=== PATIENT | female | born 1965 | race Caucasian/White ===

== ENCOUNTER 2020-02-14 00:49 | Outpatient (CLI) | payer OTHER, SELFPAY ==
[2020-02-15 14:20] LABS: SARS-CoV-2 RNA PCR Negative
== END 2020-02-14 00:50 | disposition home or self-care (01) ==
LOC: ANHCOVIDDT 00:50
PROVIDERS: PCP Internal Medicine; Visit Provider Internal Medicine Gastroenterology
DX: Z01.818 Encounter for other preprocedural examination (principal); Z11.59 Encounter for screening for other viral diseases
CPT/HCPCS: 87635; C9803; U0003

== ENCOUNTER 2020-02-17 02:09 | Day surgery (SDC) | payer OTHER, SELFPAY ==
[2020-02-13 14:45] VITALS: BMI 19.1
[2020-02-17 09:34] VITALS: BP 105/69; PULSE 77; RESP 16; TEMP 36.9; O2SAT 97; BMI 19.6
[2020-02-17] MEDS: LACTATED RINGERS 1,000 ML 150 ML IV CONT (09:48)
--- NOTE | 2020-02-17 10:00 | WPDANESEPPF ---
Anes - Initial Pre Proc Eval Procedure: Operation Date: 02/17/20 11:00 Proposed Procedures p Esophagogastroduodenoscopy - Shaun Norwood MD Date/Time: 02/17/20 10:00 Surgeon: Shaun Norwood MD Pre Op Diagnosis: dysphagia, GERD Patient Data Age: 54 Gender: F Height: 5 ft 5 in Weight: 53.6 kg Last Vital Signs Temp 98.4 F 02/17/20 09:34 Pulse 77 02/17/20 09:34 Resp 16 02/17/20 09:34 BP 105/69 02/17/20 09:34 Pulse Ox 97 02/17/20 09:34 Allergies Allergy/AdvReac Type Severity Reaction Status Date / Time Penicillins Allergy Unknown Rash Verified 02/17/20 09:30 Home Medications Medication Instructions Recorded Confirmed Type alprazolam 1 mg PO PRN PRN 02/13/20 02/13/20 History aspirin 81 mg PO DAILY 02/13/20 02/13/20 History baclofen 5 mg PO PRN PRN 02/13/20 02/13/20 History estradiol 2 mg PO DAILY 02/13/20 02/13/20 History estrogens-methyltestosterone 1 tablet PO DAILY 02/13/20 02/13/20 History eszopiclone 2 mg PO PRN PRN 02/13/20 02/13/20 History fluticasone propionate 1 spray INTRANASAL PRN PRN 02/13/20 02/13/20 History hydrocodone-acetaminophen 1 tablet PO PRN PRN 02/13/20 02/13/20 History lithium carbonate 300 mg PO DAILY 02/13/20 02/13/20 History Patient hx anesthesia problems: none Family hx anesthesia problems: none PMFSH Past Medical History Medical History (Updated 02/17/20 @ 10:00 by Jonny Noyola MD) Anxiety Depression GERD (gastroesophageal reflux disease) Family History Family History (Updated 02/26/16 @ 23:21 by DOCTOR UNKNOWN) Mother Patient's mother is in good health Father Patient's father is in good health Sibling Patient's sister is in good health Patient's brother is in good health Social History Social History (Updated 02/17/20 @ 10:15 by Jonny Noyola MD) Smoking packs per day: 0.5 Smoking cigarettes per day: 10.0 Years smoked: 20 Smoking pack-years: 10.00 Smoking status: Current every day smoker Alcohol intake: never Substance use: current Substance use type: marijuana Anes - Eval Final PreProcedure Day of Procedure 02/17/20 10:00 Patient weight: normal Heart: regular rate and rhythm Lungs: clear to auscultation Airway: Mallampati scale Neurological: alert and oriented Last oral intake: >/= 8 hours ASA classification: II Emergent: no Anesthetic plan: proceed Anesthesia type and monitoring: general GIVS and standard monitoring Informed Consent: The patient's anesthetic plan and its attendant risks and benefits were discussed with the patient/family/POA. Questions were solicited and answers provided to the satisfaction of the patient/family/POA.
--- NOTE | 2020-02-17 10:12 | P.HP_ITS ---
History of Present Illness History of Present Illness Consent: Risks, benefits, and alternatives have been discussed and questions answered. Patient agrees to proceed with procedure. Chief complaint: dysphagia, GERD Narrative: Malena Young is a 54 year old W female referred for gastroscopy for evaluation of chronic gastroesophageal reflux disease and intermittent dysphagia. Patient is a chronic smoker. There is no family history of esophageal cancer. She denies any nausea vomiting hematemesis. She takes [id number] Pepto-Bismol. No weight loss. [facility] Past Medical History Medical History (Updated 02/17/20 @ 10:00 by Jonny Noyola MD) Anxiety Depression GERD (gastroesophageal reflux disease) Family History Family History (Updated 02/26/16 @ 23:21 by DOCTOR UNKNOWN) Mother Patient's mother is in good health Father Patient's father is in good health Sibling Patient's sister is in good health Patient's brother is in good health Social History Social History (Updated 02/17/20 @ 10:02 by Jonny Noyola MD) Smoking packs per day: 0.5 Smoking cigarettes per day: 10.0 Years smoked: 20 Smoking pack-years: 10.00 Smoking status: Current every day smoker Alcohol intake: never Substance use type: marijuana Meds Home Medications and Allergies Home Medications Medication Instructions Recorded Confirmed Type alprazolam 1 mg PO PRN PRN 02/13/20 02/13/20 History aspirin 81 mg PO DAILY 02/13/20 02/13/20 History baclofen 5 mg PO PRN PRN 02/13/20 02/13/20 History estradiol 2 mg PO DAILY 02/13/20 02/13/20 History estrogens-methyltestosterone 1 tablet PO DAILY 02/13/20 02/13/20 History eszopiclone 2 mg PO PRN PRN 02/13/20 02/13/20 History fluticasone propionate 1 spray INTRANASAL PRN PRN 02/13/20 02/13/20 History hydrocodone-acetaminophen 1 tablet PO PRN PRN 02/13/20 02/13/20 History lithium carbonate 300 mg PO DAILY 02/13/20 02/13/20 History Allergies Allergy/AdvReac Type Severity Reaction Status Date / Time Penicillins Allergy Unknown Rash Verified 02/17/20 09:30 Vital Signs Vital Signs - 24 hr 02/17/20 09:34 Temperature 36.9 C Pulse Rate 77 Respiratory Rate 16 Blood Pressure 105/69 Pulse Oximetry 97 Exam Const: Orientation/consciousness: patient oriented x3 Resp: Auscultation: clear to auscultation bilaterally Cardio: Rate: regular rate Rhythm: regular rhythm Heart sounds: no murmurs GI: GI Palp: Yes Soft to palpation, No Tenderness to palpation present (GI), Yes No hepatosplenomegaly present and No Palpable mass present Auscultation: normal bowel sounds Neuro: General: patient oriented x3 and no focal motor deficits Extrem: General: no pedal edema Assessment and Plan Additional Plan EGD with possible esophageal dilatation for evaluation of chronic indigestion heartburn and dysphagia
[2020-02-17 11:10] VITALS: BP 90/57; PULSE 79; RESP 25; O2SAT 98
[2020-02-17 11:20] VITALS: BP 95/62; PULSE 84; RESP 23; O2SAT 100
[2020-02-17 11:30] VITALS: BP 110/76; PULSE 85; RESP 20; O2SAT 100
== END 2020-02-17 11:49 | disposition home or self-care (01) ==
PROVIDERS: PCP Internal Medicine; Visit Provider Internal Medicine Gastroenterology
PROC: 0DJ08ZZ Inspection of Upper Intestinal Tract, Via Natural or Artificial Opening Endoscopic (ICD-10-PCS; CPT 43235; principal; 2020-02-17 11:00)
DX: K21.0 Gastro-esophageal reflux disease with esophagitis (principal); K29.70 Gastritis, unspecified, without bleeding; F32.9 Major depressive disorder, single episode, unspecified; F41.9 Anxiety disorder, unspecified; F17.210 Nicotine dependence, cigarettes, uncomplicated; Z88.0 Allergy status to penicillin; Z79.891 Long term (current) use of opiate analgesic; Z79.82 Long term (current) use of aspirin; Z79.899 Other long term (current) drug therapy
CPT/HCPCS: 43239; 87081; 88305; J2704; J7120

== ENCOUNTER 2023-05-01 13:34 | Outpatient (CLI) | payer OTHER, SELFPAY ==
--- NOTE | ~2023-05-01 | MR_ITS ---
MRI of the lumbar spine Clinical History: Radiculopathy Technique: Axial T2-weighted images, and sagittal T1-weighted, T2-weighted, and and T2 fat-sat images were acquired. Findings: There is no fracture or subluxation of the lumbar spine. Vertebral bodies maintain normal h eight and alignment. No suspicious bone marrow signal abnormality seen. There is minimal disc desiccation L1-L2, without significant bulge or herniation. No central canal st enosis or neural foraminal narrowing. At L2-L3, there is minimal disc bulge with tiny annular fissure. There is minimal facet joint degener ative change. No central canal stenosis or neural foraminal narrowing. At L3-L4, there is no disc bulge or herniation. There is no central canal stenosis or neural foramina l narrowing. At L4-L5, there is minimal disc bulge with tiny annular fissure. No central canal stenosis or neural foraminal narrowing. At L5-S1, there is minimal disc bulge with tiny annular fissure. No central canal stenosis or neural foraminal narrowing. Paravertebral soft tissues are unremarkable. Impression: Minimal degenerative spondylosis, as above. Reviewed, dictated and finalized at location M. Impression: Minimal degenerative spondylosis, as above.
== END 2023-05-01 13:35 ==
LOC: MICIMG 13:36
PROVIDERS: PCP Nurse Practitioner Family; Visit Provider Nurse Practitioner Family
DX: M54.16 Radiculopathy, lumbar region (principal); M43.06 Spondylolysis, lumbar region
CPT/HCPCS: 72148

== ENCOUNTER 2023-05-22 13:30 | Outpatient (CLI) | payer OTHER, SELFPAY ==
--- NOTE | ~2023-05-22 | CT_ITS ---
CT Scan of the Chest without Contrast: Clinical Indication: Emphysema Technique: Contiguous sections were acquired throughout the chest without intravenous contrast. Dose reduction technique was used on this scan by utilizing automated exposure control and iterative recon struction technique. The dose-length product (DLP) was 116.23 mGy-cm. Findings: There is no evidence of any significant mediastinal, hilar or axillary lymphadenopathy. The mediastin al soft tissues appear normal. There is no evidence of pleural or pericardial effusion. 4 mm left lower lobe pulmonary nodule noted (axial image 39). There is mild emphysema.. Images through the upper abdomen reveal no abnormalities. Impression: Mild emphysema. 4 mm left lower lobe pulmonary nodule. According to Fleischner Society criteria, for a low-risk patie nt, no further follow-up required. For a high-risk patient, consider 12 month follow-up CT. Reviewed, dictated and finalized at [facility]. Impression: Mild emphysema. 4 mm left lower lobe pulmonary nodule. According to Fleischner Society criteria , for a low-risk patient, no further follow-up required. For a high-risk patien t, consider 12 month follow-up CT.
== END 2023-05-22 13:31 | disposition home or self-care (01) ==
PROVIDERS: PCP Nurse Practitioner Family; Visit Provider Physician Assistant
DX: R91.1 Solitary pulmonary nodule (principal); J43.9 Emphysema, unspecified
CPT/HCPCS: 71250

== ENCOUNTER 2023-05-26 13:21 | Outpatient (CLI) | payer OTHER, SELFPAY ==
--- NOTE | 2023-05-30 12:43 | WPDSIXMINUTE ---
Six Minute Walk Procedure Procedure Performed Pulmonary Stress Test (6 min walk) Six Minute Walk Six Minute Walk: This is a 6 minute walk test. The test was performed and interpreted in accordance with the 2014 ERS/ATS task force guidelines. Findings: The patient's resting room air oxygen saturation measured by pulse oximetry was 95% and heart rate was 90 bpm. Patient ambulated for 427 meters and oxygen saturation remained 92 to 94%. Heart rate at the end of the study was 111 bpm. The patient did not qualify for supplemental oxygen at rest or with ambulation. There are no prior studies for comparison.
--- NOTE | 2023-05-30 12:44 | WPDPFTINT ---
PFT Procedure Performed PFT Procedure Performed Spirometry with Pre/Post Bronchodilator Plethysmography (Lung Vol) Diffusing Cap (DLCO) Flow Vol Loop PFT Interpretation This is a pulmonary function test with pre and post-bronchodilator spirometry, plethysmography and diffusing capacity. The test was performed and results interpreted in accordance with the 2019 and 2005 ATS/ERS Task Force guidelines respectively using the Global Lung Function Initiative-2012 reference equations. Patient demonstrated good effort and cooperation. Reproducibility criteria were met. The quality of the pre bronchodilator spirometry maneuver was Grade A and post bronchodilator spirometry maneuver was Grade A. Findings: Spirometry: The contour the inspiratory and expiratory flow tracing are normal. The pre bronchodilator FVC is 2.77 L, 99% predicted. The pre bronchodilator FEV1 is 2.10 L, 95% predicted. The pre bronchodilator FEV1: FVC ratio 76%. The post bronchodilator FVC is 2.67 L, representing a 4% decrease. The post bronchodilator FEV1 is 2.02 L, representing a 4% decrease. The post bronchodilator FEV1: FVC ratio 76%. Plethysmography: The total lung capacity is 4.96 L, 110% predicted. The functional residual capacity is 2.98 L, 108% predicted. The residual volume is 2.00 L, 108% predicted. Diffusing capacity: The diffusing capacity unadjusted for hemoglobin and carboxyhemoglobin is 9.7, 44% predicted. The diffusing capacity adjusted for alveolar volume is 3.01, 68% predicted. Impression: The spirometry is normal without evidence of an obstructive abnormality. There is no significant improvement after inhaling a single dose of albuterol. The lung volumes are normal. The diffusing capacity unadjusted for hemoglobin and carboxyhemoglobin is moderately decreased and remains mildly decreased when adjusted for alveolar volume. There are no prior studies for comparison
== END 2023-05-26 13:22 | disposition home or self-care (01) ==
PROVIDERS: PCP Nurse Practitioner Family; Visit Provider Physician Assistant
DX: J43.9 Emphysema, unspecified (principal)
CPT/HCPCS: 94060; 94618; 94726; 94729

== ENCOUNTER → 2023-08-10 13:16 | Outpatient (CLI) | payer OTHER, SELFPAY ==
--- NOTE | ~2023-08-10 | MM_ITS ---
EXAMINATION: MM scrn gino implant BI w stephania HISTORY: Screening mammogram TECHNIQUE: Craniocaudal and mediolateral oblique 3-D tomosynthesis images with implant displacement a nd synthetic 2-D images were generated. Craniocaudal and mediolateral oblique views of the breasts wi thout implant displacement were obtained using full field digital mammography. CAD analysis was submi tted and interpreted. COMPARISON: 05/15/2013, 09/03/2009 BREAST PARENCHYMAL COMPOSITION: There are scattered areas of fibroglandular density. FINDINGS: There is no evidence of suspicious mass, calcification, or architectural distortion to sugg est malignancy in either breast. There has been no suspicious interval change. IMPRESSION: 1. No mammographic evidence of malignancy. 2. Recommend routine screening mammography in one year. BI-RADS Category 1: Negative Reviewed, dictated and finalized at location A. UET COORDINATOR
== END ==
PROVIDERS: PCP Nurse Practitioner Obstetrics & Gynecology; Visit Provider Nurse Practitioner Obstetrics & Gynecology
DX: Z12.31 Encounter for screening mammogram for malignant neoplasm of breast (principal)
CPT/HCPCS: 77063; 77067

== ENCOUNTER 2023-10-24 07:14 | Outpatient (CLI) | payer OTHER, SELFPAY ==
--- NOTE | ~2023-10-24 | NM_ITS ---
EXAMINATION: NM paul stress w perfusion DATE: 10/24/2023 12:10 INDICATION: Chest pain TECHNIQUE: Rest images were obtained following intravenous administration of 10.3 mCi Tc99m tetrofosm in (Myoview). The patient was infused intravenously with Lexiscan (Regadenoson). Then, 30.2 mCi Tc99m tetrofosmin (Myoview) was administered intravenously, and stress images were obtained. Data was benita nstructed into short axis and horizontal and vertical long axis SPECT images. Gated SPECT images were also obtained. COMPARISON: None. FINDINGS: There is no definite reversible or fixed perfusion abnormality to suggest ischemia or infar ction. There is normal left ventricular chamber size, wall motion and ejection fraction. Left ventr icular ejection fraction measures 50%. IMPRESSION: 1. Normal myocardial perfusion at rest and during stress. 2. Left ventricular ejection fraction measuring 50%. Reviewed, dictated and finalized at location A.
--- NOTE | 2023-10-24 07:36 | EST_ITS ---
Patient Info Name: Malena Young Age: 58 years : 1965 Gender: Female Ht: 64 in Wt: 104 lbs BSA: 1.45 m2 HR: 83 bpm BP: 110 / 74 mmHg Heart Rhythm: Sinus Rhythm Exam Date: 10/24/2023 9:10 AM Exam Location: Echo Lab Patient Status: Outpatient Admit Date: 10/24/2023 Staff Ordering Physician: Asif Moulton DO Attending Provider: Asif Moulton DO Exercise Technologist: Ilene Johnson CT Exercise Physician: Asif Moulton DO Exam Type: CA stress paul w NM Study Info Indications R06.09 - Other forms of dyspnea R07.89 - Other chest pain A regadenoson stress test was performed. Summary 1. 1. Negative lexiscan stress test for ischemic ST changes by ECG criteria. 2. 2. Stable hemodynamics throughout the test. 3. 3. Nuclear scan to follow and will be reported separately. Please correlate with it. 4. 4. Patient informed of the above results. Protocol: Lexiscan Stress ECG Details Stage: REST Duration (min): 0 min : 46 sec HR (bpm): 84 SBP (mmHg): 110 DBP (mmHg): 74 Stage: REST Duration (min): 7 min : 51 sec HR (bpm): 87 SBP (mmHg): 110 DBP (mmHg): 74 Stage: STAGE 1 Duration (min): 1 min : 0 sec HR (bpm): 107 SBP (mmHg): 103 DBP (mmHg): 79 Stage: RECOVERY Duration (min): 1 min : 0 sec HR (bpm): 109 SBP (mmHg): 103 DBP (mmHg): 79 Stage: RECOVERY Duration (min): 2 min : 0 sec HR (bpm): 105 SBP (mmHg): 103 DBP (mmHg): 79 Stage: RECOVERY Duration (min): 2 min : 54 sec HR (bpm): 109 SBP (mmHg): 113 DBP (mmHg): 75 Rest HR: 87 bpm Peak HR: 110 bpm Rest Sys BP: 110 mmHg Peak Sys BP: 113 mmHg Max Pred HR: 161 bpm % Max Pred HR: 68 % Target HR: 137 bpm Max RPP: 12,430 bpm*mmHg Termination Reason: Completed protocol Cardiac Symptoms: Shortness of breath Total Time: 1 min : 0 sec Rest Lovett BP: 74 mmHg Peak Lovett BP: 75 mmHg Total Dose: 0.4 mg Resting ECG Sinus rhythm. Stress ECG No ST changes. Arrhythmias None. Report Signatures
--- NOTE | 2023-10-24 07:37 | ECHO_ITS ---
Patient Info Name: Malena Young Age: 58 years : 1965 Gender: Female Ht: 64 in Wt: 130 lbs BSA: 1.64 m2 HR: 92 bpm BP: 116 / 77 mmHg Heart Rhythm: Sinus Rhythm Technical Quality: Good Exam Date: 10/24/2023 7:43 AM Exam Location: Echo Lab Patient Status: Outpatient Admit Date: 10/24/2023 Staff Ordering Physician: Asif Moulton DO Reel Blade Bender Furnace Tender: Sunni Hermosillo RDCS Attending Provider: Asif Moulton DO Referring Physician: Kenney CARBALLO; Exam Type: CA echo doppler color flow Study Info Indications R07.9 - Chest pain, unspecified R06.09 - Other forms of dyspnea Complete two-dimensional, color flow and Doppler transthoracic echocardiogram is performed. Summary 1. Complete two-dimensional, color flow and Doppler transthoracic echocardiogram is performed. 2. Left ventricular chamber dimension is normal. 3. Left ventricular systolic function is normal, estimated at 65-70%. 4. The left ventricular diastolic function is grade I diastolic dysfunction. 5. E/e' 5 is not elevated. 6. There is trace tricuspid valve regurgitation. 7. No pulmonary hypertension, estimated pulmonary arterial systolic pressure is 18 mmHg. Left Ventricle E/e' 5 is not elevated. Left ventricular chamber dimension is normal. Left ventricular systolic function is normal, estimated at 65-70%. The left ventricular diastolic function is grade I diastolic dysfunction. Right Ventricle Right ventricular systolic function is normal and with normal TAPSE 1.9 cm.. Right ventricular chamber dimension is normal. Left Atria Left atrial chamber dimension is normal. Right Atria Right atrial chamber dimension is normal. Aortic Valve The aortic valve is trileaflet. There is no aortic valve stenosis. There is no aortic valve regurgitation. Pulmonic Valve There is no pulmonic regurgitation. Mitral Valve There is no mitral valve stenosis. There is no mitral valve regurgitation. Tricuspid Valve There is trace tricuspid valve regurgitation. No pulmonary hypertension, estimated pulmonary arterial systolic pressure is 18 mmHg. Pericardium/Pleural There is no pericardial effusion. Inferior Vena Cava Normal inferior vena cava with >50% collapse upon inspiration consistent with normal right atrial pressure, 5 mmHg. Aorta The aortic root size at the sinus of Valsalva is normal. Left Ventricular Outflow Tract Name Value Normal LVOT 2D LVOT Diameter 2.0 cm LVOT Doppler LVOT Peak Gradient 3 mmHg LVOT Mean Gradient 2 mmHg LVOT VTI 18 cm LVOT VTI/AV VTI Ratio 0.8 LVOT Stroke Volume 55 ml LVOT CO 4.4 l/min LVOT CI 2.7 l/min/m2 Pulmonic Valve Name Value Normal RVOT Doppler RVOT Peak Gradient 1 mmHg PV Doppler
== END 2023-10-24 07:15 | disposition home or self-care (01) ==
PROVIDERS: PCP Nurse Practitioner Obstetrics & Gynecology; Visit Provider Internal Medicine Cardiovascular Disease
DX: R07.89 Other chest pain (principal); R06.09 Other forms of dyspnea
CPT/HCPCS: 78452; 93017; 93306; A9502; J2785

== ENCOUNTER 2024-04-25 11:04 | Outpatient (CLI) | payer OTHER, SELFPAY ==
[2024-04-25 11:29] LABS: Basophils Absolute Auto 0.1 K/mm3 (0.0-0.1); Basophils Percent Auto 0.6 % (0.2-1.2); Eosinophils Absolute Auto 0.1 K/mm3 (0-0.3); Hematocrit 38.9 % (37.0-47.0); Hemoglobin 12.3 g/dL (12.0-15.0); Immature Granulocyte Absolute 0.02 K/mm3 (0.00-0.031); Immature Granulocyte Percent A 0.3 % (0-0.5); Lymphocytes Absolute Auto 2.54 K/mm3 (0.9-3.2); Lymphocytes Percent Auto 32.1 % (18.3-44.2); Mean Corpuscular HGB Conc 31.6 g/dl (32-36); Mean Corpuscular Hemoglobin 29.9 pg (26-34); Mean Corpuscular Volume 94.6 fl (80-100); Mean Platelet Volume 8.8 fl (7.4-10.4); Monocytes Absolute Auto 0.4 K/mm3 (0.1-0.6); Monocytes Percent Auto 5.6 % (2.6-8.5); Neutrophils Absolute Auto 4.8 K/mm3 (1.3-6.7); Neutrophils Percent Auto 60.4 % (45.5-73.1); Platelet Count Result 228 k/mm3 (150-375); Red Blood Count 4.11 M/mm3 (4.2-5.4); Red Cell Distribution Width 14.1 % (11.5-14.5); White Blood Count 7.9 K/mm3 (4.5-10.0)
[2024-04-25 11:40] LABS: Alanine Aminotransferase 21 U/L (6-35); Albumin Level 3.9 g/dL (3.5-5.1); Alkaline Phosphatase 149 U/L (38-126); Anion Gap 7 mmol/L (4-12); Aspartate Amino Transferase 26 U/L (14-36); Bilirubin,Total 0.3 mg/dL (0.2-1.3); Blood Urea Nitrogen 14 mg/dL (7-17); Calcium 8.7 mg/dL (8.4-10.2); Carbon Dioxide 26 mmol/L (22-30); Chloride 107 mmol/L (98-107); Cholesterol 208 mg/dL (0-200); Estimated Glomerular Filt Rate > 60; Glucose 100 mg/dL (65-110); HDL Direct 51 mg/dL; Magnesium 2.1 mg/dL (1.6-2.3); Sodium 140 mmol/L (137-145); Triglycerides 157 mg/dL (<150)
[2024-04-25 11:51] LABS: LDL Cholesterol Direct 118 mg/dL
[2024-04-25 12:13] LABS: Hemoglobin A1C 5.3 % (<5.7)
== END 2024-04-25 11:05 | disposition home or self-care (01) ==
LOC: ANHLAB 11:06
PROVIDERS: PCP Nurse Practitioner Obstetrics & Gynecology; Visit Provider Internal Medicine Cardiovascular Disease
DX: R07.9 Chest pain, unspecified (principal)
CPT/HCPCS: 36415; 80053; 80061; 83036; 83735; 84443; 85025

== ENCOUNTER 2024-05-27 13:52 | Outpatient (CLI) | payer OTHER, SELFPAY ==
--- NOTE | ~2024-05-27 | CT_ITS ---
CT Scan of the Chest without Contrast: Clinical Indication: Lung cancer screening, nicotine dependence Technique: Contiguous sections were acquired throughout the chest without intravenous contrast. Dose reduction technique was used on this scan by utilizing automated exposure control and iterative recon struction technique. The dose-length product (DLP) was 59.99 mGy-cm. COMPARISON: 05/22/2023 Findings: There is no evidence of any significant mediastinal, hilar or axillary lymphadenopathy. The mediastin al soft tissues appear normal. There is no evidence of pleural or pericardial effusion. Mild emphysema present. Calcified right upper lobe granuloma present. Stable 4 mm left lower lobe pul monary nodule (axial image 42). Images through the upper abdomen reveal no abnormalities. Impression: Lung RADS 2: Benign appearance. 12 month follow-up screening CT advised. Reviewed, dictated and finalized at [facility]. Impression: Lung RADS 2: Benign appearance. 12 month follow-up screening CT advised.
== END 2024-05-27 13:53 | disposition home or self-care (01) ==
PROVIDERS: Visit Provider Physician Assistant
DX: Z12.2 Encounter for screening for malignant neoplasm of respiratory organs (principal); Z87.891 Personal history of nicotine dependence
CPT/HCPCS: 71271

== ENCOUNTER 2024-05-31 16:13 | Emergency (ER) | payer OTHER, SELFPAY ==
--- NOTE | ~2024-05-31 | XR_ITS ---
XR ankle LT min 3V Ordering provider: Lenka Starr PA-C History: . left ankle pain, fall . Comparison: None. FINDINGS: BONES: No acute fracture or dislocation. JOINT SPACES: The ankle mortise is normal. SOFT TISSUES: Normal. IMPRESSION: No acute osseous abnormality left ankle. Reviewed, dictated and finalized at location A.
--- NOTE | ~2024-05-31 | CT_ITS ---
Procedure: CT knee LT wo con Ordering provider: Lenka Starr PA-C History: . possible tibial plateau fracture . Comparison: None. Technique: Thin slice axial CT of the No IV contrast was given. Sagittal and coronal reformatted imag es were also obtained and reviewed. Radiation reduction technique utilized. The dose-length product was 490.42 mGy-cm. Findings: BONES: Fracture of the medial tibial plateau is noted with no displacement. Extension to the tibial s pine is seen. Fracture in the head of the fibula is also seen. No displacement noted. JOINT SPACES: Normal. SOFT TISSUES: Fluid blood level is seen in the suprapatellar patellar bursa. Minimal fat stranding se en posterior to the knee medially with small blood collections. IMPRESSION: Undisplaced Fracture of the medial tibial plateau. Undisplaced Fracture of the fibular head. Reviewed, dictated and finalized at location A.
--- NOTE | ~2024-05-31 | XR_ITS ---
XR knee LT min 4V Ordering provider: Lenka Starr PA-C History: . left knee pain, fall . Comparison: None. FINDINGS: BONES: Fracture of the head of the fibula is noted. Possible fracture in the medial tibial plateau. If Clinically warranted CT is advised. JOINT SPACES: Normal. SOFT TISSUES: Fat fluid level is noted in the suprapatellar bursa. IMPRESSION: Fracture of the fibular head. Possible fracture in the medial tibial plateau. If clinically warranted CT is advised. Fat fluid level is seen in the suprapatellar bursa. Reviewed, dictated and finalized at location A. IMPRESSION: Fracture of the fibular head. Possible fracture in the medial tibial plateau. If clinically warranted CT is a dvised. Fat fluid level is seen in the suprapatellar bursa.
--- NOTE | ~2024-05-31 | CT_ITS ---
EXAMINATION: CT brain wo con DATE: 05/31/2024 17:06 INDICATION: Head injury post fall down stairs TECHNIQUE: Computed tomography (CT) of the head was performed without intravenous contrast. Sagittal and coronal reconstructions were performed. The mA was adjusted according to patient size. Iterative reconstruction technique was employed. The dose-length product was 605.33 mGy-cm. COMPARISON: head CT dated 06/02/2015 FINDINGS: No fracture. No acute intracranial hemorrhage, acute infarction or abnormal extra axial fluid collect ion. There is mild scattered white matter hypoattenuation consistent with chronic small vessel ischem ic disease. Ventricles are normal and symmetric. No mass/mass effect. Changes of bilateral intraocula r lens replacement. The orbits, paranasal sinuses and mastoid air cells are normal. IMPRESSION: 1. No fracture or acute intracranial process. 2. Likely age-related mild scattered white matter hypoattenuation consistent with chronic small vesse l ischemic disease. Reviewed, dictated and finalized at location A. IMPRESSION: 1. No fracture or acute intracranial process. 2. Likely age-related mild scattered white matter hypoattenuation consistent wi th chronic small vessel ischemic disease.
--- NOTE | ~2024-05-31 | CT_ITS ---
EXAMINATION: 1. CT facial & cervical spine wo DATE: 05/31/2024 17:06 INDICATION: Head injury TECHNIQUE: 1. Computed tomography (CT) of the maxillofacial region and of the cervical spine were performed with out intravenous contrast. Sagittal and coronal reconstructions of both regions were obtained. Automat ed exposure control and iterative reconstruction technique were employed. The dose-length product was 177.09 mGy-cm. COMPARISON: 06/02/2015 FINDINGS: Maxillofacial CT: Interval appearance of a chronic right nasal bone fracture when compared with CT dated 09/20/2010. No acute maxillofacial fractures. Specifically the mandible,, zygomatic arches and valerio of the orbits a nd paranasal sinuses are all intact. Unchanged mild left and bowing of the nasal septum with no acute fracture. Patient is edentulous with alveolar ridge resorptive on both the mandible and maxilla. Dianelys nges of bilateral intraocular lens replacement. Orbits are otherwise normal. Cervical spine CT: 5 degrees cervical dextrocurvature. Sagittal alignment is normal. Vertebral body and disc heights are normal. No acute fracture. There is minimal to mild multilevel cervical uncovertebral osteoarthritis and cervical and upper thoracic facet osteoarthritis. No central canal or neural foraminal stenosis. Cervical soft tissues are unremarkable. Mild emphysema the visualized upper lungs. IMPRESSION: 1. No acute maxillofacial or cervical osseous abnormality. 2. Minimal to mild cervical facet and uncovertebral osteoarthritis with no central canal or neural fo raminal stenosis. 3. Mild emphysema. Reviewed, dictated and finalized at location A. IMPRESSION: 1. No acute maxillofacial or cervical osseous abnormality. 2. Minimal to mild cervical facet and uncovertebral osteoarthritis with no cent ral canal or neural foraminal stenosis. 3. Mild emphysema.
--- NOTE | ~2024-05-31 | XR_ITS ---
EXAMINATION: XR heel RT min 2V DATE: 05/31/2024 16:51 INDICATION: Right heel pain. TECHNIQUE: 2 views of right calcaneus were obtained. COMPARISON: None. FINDINGS: Bone alignment is normal. No fracture. Joint spaces are normal. IMPRESSION: 1. Normal right calcaneus. Reviewed, dictated and finalized at location B. IMPRESSION: 1. Normal right calcaneus.
--- NOTE | ~2024-05-31 | CT_ITS ---
[facility] DATE: 05/31/2024 17:11 INDICATION: Fall down stairs with washing machine subsequently landing on the patient. TECHNIQUE: Computed tomography (CT) of the chest, abdomen, pelvis as well as of the thoracic and lumb ar spine was performed with 100 mL Omnipaque-350 intravenous contrast. Automated exposure control and iterative reconstruction technique were employed. The dose-length product was 550.81 mGy-cm. COMPARISON: Chest CT dated 05/27/2024 FINDINGS: CHEST CT: Mild emphysema. Right basilar atelectasis and additional mild dependent atelectasis in the bilateral lower lobes. A couple calcified nodules in the right lung along with calcified right hilar and medias tinal lymph nodes consistent with old granulomatous disease. No pneumonia, pulmonary edema, pleural e ffusion or pneumothorax. Heart size is normal. No pericardial effusion. Thoracic aorta is normal in c aliber with no dissection or acute traumatic aortic injury. No pathologically enlarged thoracic lymph adenopathy. Bilateral breast implants. No rib fractures identified. ABDOMEN/PELVIS CT: Liver, gallbladder, pancreas, bilateral adrenal glands and kidneys are normal. A few splenic calcific ations consistent with old granulomatous disease. Bowels including the appendix are normal. Bladder, uterus and bilateral adnexa are unremarkable. No free intraperitoneal gas or fluid. No pathologically enlarged abdominal or pelvic lymphadenopathy. No pelvic fracture. THORACIC SPINE CT: Alignment is normal. Unchanged mild chronic anterior wedging at T5 and T7. Remaining vertebral body h eights are normal. There is multilevel mild disc height loss throughout the thoracic spine. Mild mult ilevel thoracic facet osteoarthritis. No central canal or neural foraminal stenosis. LUMBAR SPINE CT: Alignment is normal. Vertebral body and disc heights are normal. No fractures identified. No central canal or neural foraminal stenosis. IMPRESSION: 1. No acute osseous abnormality or acute vascular or visceral organ injury in the chest, abdomen or p matthew. Reviewed, dictated and finalized at location A. IMPRESSION: 1. No acute osseous abnormality or acute vascular or visceral organ injury in t he chest, abdomen or pelvis.
[2024-05-31 16:15] VITALS: BP 113/65; PULSE 111; RESP 18; TEMP 36.6; O2SAT 98
--- NOTE | 2024-05-31 16:16 | ED.FALL ---
HPI - Fall General Chief Complaint: Trauma Stated Complaint: fall Time Seen by Provider: 05/31/24 16:16 Focused HPI: This is a 59 year old female that presents to the ER after a fall today. Reports she fell down several steps (she believes 8) trying to carry a washer. The washer landed on top of her. Reports pain in the left leg from the knee down. She does think she hit her head. She is not on blood thinners. GENERAL: Well-appearing, well-nourished, and in no acute distress. HEAD: Normocephalic. Abrasion to the left sikh CHEST: Clear to auscultation. ?No respiratory distress. HEART: Regular rate and rhythm.? NEURO: ?Alert and oriented x3. Patient screened in triage and initial orders placed.? ?Additional care and disposition to be based upon?diagnostic testing and treatment. Related Data Home Medications Medication Instructions Recorded Confirmed alprazolam 1 mg tablet 1 mg PO PRN PRN Anxiety 02/13/20 04/26/24 aspirin 81 mg tablet,delayed 81 mg PO DAILY 02/13/20 04/26/24 release eszopiclone 2 mg tablet 2 mg PO PRN PRN sleeplessness 02/13/20 04/26/24 hydrocodone 5 mg-acetaminophen 325 1 tablet PO PRN PRN Pain 02/13/20 04/26/24 mg tablet Allergies Allergy/AdvReac Type Severity Reaction Status Date / Time Penicillins Allergy Unknown Rash Verified 04/26/24 14:35 Review of Systems Review of Systems: CONSTITUTIONAL: Denies fever EYES: Denies visual changes CARDIOVASCULAR: Denies chest pain GASTROINTESTINAL: Denies abdominal pain, nausea, vomiting MUSCULOSKELETAL: Reports joint pain and myalgia. Denies back pain NEUROLOGIC: Denies numbness, or weakness. All systems reviewed & are unremarkable except as noted in HPI and below PMFSH Past Medical History Medical History Anxiety Depression Emphysema lung GERD (gastroesophageal reflux disease) Personal history of nicotine dependence Pulmonary nodule Family History Family History Mother Patient's mother is in good health Father Patient's father is in good health Sibling Patient's sister is in good health Patient's brother is in good health Social History Social History Smoking packs per day: 0.5 Smoking cigarettes per day: 10.0 Years smoked: 20 Smoking pack-years: 10.00 Smoking status: Current every day smoker Alcohol intake: never Substance use: current Substance use type: marijuana Exam Narrative: GENERAL: Well-appearing, well-nourished, and in no acute distress. HEAD: Normocephalic. Abrasion over the left sikh EYES: PERRLA and EOMI. ENT: Nares clear, no rhinorrhea or epistaxis. Mucous membranes moist. Oropharynx without tonsillar hypertrophy exudate or other lesions. Bilateral TMs pearly ruiz non-bulging NECK: Supple. No adenopathy or masses. CHEST: Clear to auscultation. No respiratory distress. No wheezes rales or rhonchi HEART: Regular rate and rhythm. No murmur heard. Normal peripheral pulses. EXTREMITIES: Normal range of motion, except decreased active ROM in the left knee with edema noted. Normal DP pulses. Compartments are soft SKIN: Warm, dry, no rash. NEURO: No focal deficits. Alert and oriented x3. PSYCH: Normal mood and affect Course Course Emergency Course: Patient agrees with plan of care Consultations Consultation #1: Spoke with Dr. floewr about patient and workup. Recommends soft wrap and maxx wrap and then knee immobilizer Date: 05/31/24 Vital Signs Vital signs: Vital Signs Temperature 97.8 F 05/31/24 16:15 Pulse Rate 111 H 05/31/24 16:15 Respiratory Rate 18 05/31/24 16:15 Blood Pressure 113/65 05/31/24 16:15 Pulse Oximetry 98 05/31/24 16:15 Oxygen Delivery Room Air 05/31/24 16:15 Temperature 98.1 F 05/31/24 18:01 Pulse Rate 93 05/31/24 18:01 Respiratory Rate 18 05/31/24 18:01 Blood Pressure 117/79 05/31/24 18:01 Pulse Oximetry 99 05/31/24 18:01 Oxygen Delivery Room Air 05/31/24 17:05 Procedures Orthopedic Splinting/Casting Injury #1: Splinting/Casting Date: 05/31/24 Splinting/Casting Time: 19:29 Side: left Lower Extremity Injury Location: knee Lower Extremity Immobilizer: knee immobilizer Splint: prefabricated Pre-Formed: knee immobilizer Pre-Procedure Neuro Vascular Exam: normal Post-Procedure Neuro Vascular Exam: normal Other Orthopedic Equipment: other (patient reports she has a wheelchair she can use) MDM - Fall MDM Narrative Medical decision making narrative: patient presents to the emergency department after falling down steps. Reporting she was trying to carry a washer down the steps but also fell and partially landed on top of her. Tachycardic upon arrival, this normalized with management of her pain. She is neurovascularly intact. CBC metabolic panel without concerning findings. CT brain and cervical spine without acute findings. CT chest/abdomen / pelvis/ thoracic/ lumbar spine without acute posttraumatic findings. Left knee x-ray shows a possible tibial plateau fracture. Fracture of the fibular head. CT knee once again shows nondisplaced fracture of the medial tibial plateau as well as nondisplaced fracture of the fibular head. Spoke with Dr. flower about patient and workup. Recommends soft wrap and maxx wrap and then knee immobilizer. patient given warnings to return to the ER Differential Diagnosis Differential diagnosis: Likely compression fracture, concussion without loss of consciousness and other ( subdural hematoma, tibial plateau fracture, intra-abdominal trauma, intrathoracic trauma) Lab Data Attestation: I reviewed the patient's lab results. 05/31/24 17:56 05/31/24 17:56 Labs: Lab Results 05/31/24 Range/Units 17:56 WBC 8.9 (4.5-10.0) K/mm3 RBC 4.72 (4.2-5.4) M/mm3 Hgb 14.2 (12.0-15.0) g/dL Hct 43.8 (37.0-47.0) % MCV 92.8 (80-100) fl MCH 30.1 (26-34) pg MCHC 32.4 (32-36) g/dl RDW 14.1 (11.5-14.5) % Plt Count 256 (150-375) k/mm3 MPV 8.9 (7.4-10.4) fl Immature Gran % (Auto) 0.3 (0-0.5) % Neut % (Auto) 61.1 (45.5-73.1) % Lymph % (Auto) 29.3 (18.3-44.2) % [place] % (Auto) 7.3 (2.6-8.5) % Eos % (Auto) 1.4 (0-4.4) % Baso % (Auto) 0.6 (0.2-1.2) % Lymph # (Auto) 2.59 (0.9-3.2) K/mm3 [place] # (Auto) 0.7 H (0.1-0.6) K/mm3 Eos # (Auto) 0.1 (0-0.3) K/mm3 Baso # (Auto) 0.1 (0.0-0.1) K/mm3 Abs Immat Gran (auto) 0.03 (0.00-0.031) K/mm3 Absolute Neuts (auto) 5.4 (1.3-6.7) K/mm3 Absolute Nucleated RBC 0.000 (0.0-0.012) K/mm3 Nucleated RBC % 0.0 (0.0-0.2) % Sodium 140 (137-145) mmol/L Potassium 4.4 (3.4-5.0) mmol/L Chloride 102 (98-107) mmol/L Carbon Dioxide 28 (22-30) mmol/L Anion Gap 10 (4-12) mmol/L BUN 11 (7-17) mg/dL Creatinine 0.70 (0.7-1.0) mg/dL Estim Creat Clear Calc 64 ml/min Estimated GFR > 60 (59 - ) Glucose 79 (65-110) mg/dL Calcium 9.3 (8.4-10.2) mg/dL Total Bilirubin 0.4 (0.2-1.3) mg/dL AST 35 (14-36) U/L ALT 42 H (6-35) U/L Alkaline Phosphatase 219 H (38-126) U/L Total Protein 9.0 H (6.3-8.2) g/dL Albumin 4.8 (3.5-5.1) g/dL Imaging Data Radiologist's impression: ITS Impressions Ankle X-Ray 05/31/24 16:52 IMPRESSION: No acute osseous abnormality left ankle. Knee X-Ray 05/31/24 16:53 IMPRESSION: Fracture of the fibular head. Possible fracture in the medial tibial plateau. If clinically warranted CT is advised. Fat fluid level is seen in the suprapatellar bursa. Heel X-Ray 05/31/24 16:54 IMPRESSION: 1. Normal right calcaneus. Head CT 05/31/24 17:14 IMPRESSION: 1. No fracture or acute intracranial process. 2. Likely age-related mild scattered white matter hypoattenuation consistent with chronic small vessel ischemic disease. Head/Cervical Spine/Facial Bones CT 05/31/24 17:16 IMPRESSION: 1. No acute maxillofacial or cervical osseous abnormality. 2. Minimal to mild cervical facet and uncovertebral osteoarthritis with no central canal or neural foraminal stenosis. 3. Mild emphysema. Chest/Abdomen/Pelvis/Spine CT 05/31/24 17:25 IMPRESSION: 1. No acute osseous abnormality or acute vascular or visceral organ injury in the chest, abdomen or pelvis. Knee CT 05/31/24 18:44 IMPRESSION: Undisplaced Fracture of the medial tibial plateau. Undisplaced Fracture of the fibular head. Critical Care Time Critical Care Time Critical Care Time: No Discharge Plan Discharge Clinical Impression: Closed fracture of tibial plateau Qualifiers: Encounter type: initial encounter Laterality: left Qualified Code(s): S82.142A - Displaced bicondylar fracture of left tibia, initial encounter for closed fracture Fracture of fibula, proximal Qualifiers: Encounter type: initial encounter Fracture type: closed Fracture morphology: other fracture Laterality: left Qualified Code(s): S82.832A - Other fracture of upper and lower end of left fibula, initial encounter for closed fracture Patient Disposition: Home, Self-Care Condition: Stable Instructions: Leg Fracture (ED) Additional Instructions: Return to the ER if you experience fever, redness and swelling of your extremity, numbness or any other symptoms that are concerning to you Wear knee immobilizer. No weight on the affected leg. Ice and elevate extremity. [id number] pain medication as needed. Prescribed pain medication (Oxycodone-acetaminophen) as needed, do not take your previously prescribed narcotic (Hydrocodone-acetaminophen) if you take this Follow up with orthopedics for further care. Prescriptions: New oxycodone-acetaminophen 5-325 mg tablet 1 tablet PO Q6H PRN (Reason: pain) Qty: 14 0RF No Action alprazolam 1 mg tablet 1 mg PO PRN PRN (Reason: Anxiety) hydrocodone-acetaminophen 5-325 mg tablet 1 tablet PO PRN PRN (Reason: Pain) aspirin 81 mg Tablet,Delayed Release (Dr/Ec) 81 mg PO DAILY eszopiclone 2 mg tablet 2 mg PO PRN PRN (Reason: sleeplessness) albuterol sulfate 90 mcg/actuation HFA aerosol inhaler 1 - 2 puff inhalation Q4-6H PRN (Reason: shortness of breath or wheezing) Qty: 8.5 2RF Breztri Aerosphere 160-9-4.8 mcg/actuation HFA aerosol inhaler 2 inh inhalation QAM AND QPM Qty: 10.7 5RF Rx Instructions: rinse and spit Follow-up/Referrals: PHYSICIAN,RN MEDICAL INPATIENT SERVICES [Non-Staff] - Bill Flower MD [Physician] -
[2024-05-31 17:05] VITALS: BP 117/79; PULSE 92; RESP 18; TEMP 36.7; O2SAT 99
[2024-05-31 18:01] VITALS: BP 117/79; PULSE 93; RESP 18; TEMP 36.7; O2SAT 99
[2024-05-31 18:05] LABS: Basophils Absolute Auto 0.1 K/mm3 (0.0-0.1); Basophils Percent Auto 0.6 % (0.2-1.2); Eosinophils Absolute Auto 0.1 K/mm3 (0-0.3); Eosinophils Percent Auto 1.4 % (0-4.4); Hematocrit 43.8 % (37.0-47.0); Hemoglobin 14.2 g/dL (12.0-15.0); Immature Granulocyte Absolute 0.03 K/mm3 (0.00-0.031); Immature Granulocyte Percent A 0.3 % (0-0.5); Lymphocytes Absolute Auto 2.59 K/mm3 (0.9-3.2); Lymphocytes Percent Auto 29.3 % (18.3-44.2); Mean Corpuscular HGB Conc 32.4 g/dl (32-36); Mean Corpuscular Hemoglobin 30.1 pg (26-34); Mean Corpuscular Volume 92.8 fl (80-100); Mean Platelet Volume 8.9 fl (7.4-10.4); Monocytes Absolute Auto 0.7 K/mm3 (0.1-0.6); Monocytes Percent Auto 7.3 % (2.6-8.5); Neutrophils Absolute Auto 5.4 K/mm3 (1.3-6.7); Neutrophils Percent Auto 61.1 % (45.5-73.1); Platelet Count Result 256 k/mm3 (150-375); Red Blood Count 4.72 M/mm3 (4.2-5.4); Red Cell Distribution Width 14.1 % (11.5-14.5); White Blood Count 8.9 K/mm3 (4.5-10.0)
[2024-05-31 18:16] LABS: Alanine Aminotransferase 42 U/L (6-35); Albumin Level 4.8 g/dL (3.5-5.1); Alkaline Phosphatase 219 U/L (38-126); Anion Gap 10 mmol/L (4-12); Aspartate Amino Transferase 35 U/L (14-36); Bilirubin,Total 0.4 mg/dL (0.2-1.3); Blood Urea Nitrogen 11 mg/dL (7-17); Calcium 9.3 mg/dL (8.4-10.2); Carbon Dioxide 28 mmol/L (22-30); Chloride 102 mmol/L (98-107); Estimated CRCL calculation 64 ml/min; Estimated Glomerular Filt Rate > 60; Glucose 79 mg/dL (65-110); Potassium 4.4 mmol/L (3.4-5.0); Sodium 140 mmol/L (137-145)
[2024-05-31] MEDS: MORPHINE SULFATE (*CRX) 4 MG/ML INJ IV PUSH (18:16)
[2024-05-31] MEDS: ONDANSETRON INJ 4 MG/2 ML VIAL IV PUSH (18:19)
[2024-05-31] MEDS: oxyCODONE HCL (*CRX) 5 MG TAB IR PO (19:26)
[2024-05-31 19:37] VITALS: BP 132/76; PULSE 88; RESP 20; TEMP 36.7; O2SAT 98
[2024-05-31] MEDS: TETANUS,DIPHTHERIA,AC PERTUSSIS ADULT (0.5 ML) BOOSTRIX IM (20:25)
[2024-05-31 20:30] VITALS: BP 120/74
[2024-06-05 11:58] LABS: Estimated CRCL calculation 50 ml/min; Estimated Glomerular Filt Rate > 60
== END 2024-05-31 20:55 | disposition home or self-care (01) ==
PROVIDERS: Emergency Provider Physician Assistant
DX: S82.142A Displaced bicondylar fracture of left tibia, initial encounter for closed fracture (principal); S82.832A Other fracture of upper and lower end of left fibula, initial encounter for closed fracture; W10.9XXA Fall (on) (from) unspecified stairs and steps, initial encounter; Z79.82 Long term (current) use of aspirin; F41.8 Other specified anxiety disorders; K21.9 Gastro-esophageal reflux disease without esophagitis; F17.210 Nicotine dependence, cigarettes, uncomplicated; Z23 Encounter for immunization
CPT/HCPCS: 36415; 70450; 70486; 71260; 72125; 72129; 72132; 73564; 73610; 73650; 73700; 74177; 80053; 82565; 85025; 90471; 90715; 96374; 96375; 99284; A9270; J2270; J2405; Q9967

== ENCOUNTER 2024-07-02 12:04 | Outpatient (CLI) | payer OTHER, SELFPAY ==
--- NOTE | ~2024-07-02 | CT_ITS ---
EXAMINATION: CT ankle RT wo con, CT foot RT wo con DATE: 07/02/2024 12:36 INDICATION: Right heel pain and contusion to the right foot post fall down stairs 4 weeks prior TECHNIQUE: High resolution computed tomography (CT) of the right ankle and right foot were performed without int ravenous contrast. Additional sagittal and coronal reconstructions were performed. Automated exposure control and iterative reconstruction technique were employed. The dose-length product was 178.43 (ri ght ankle), 139.12 (right foot) mGy-cm. COMPARISON: Right heel radiographs dated 05/31/2024 FINDINGS: Nondisplaced linear fracture underlying the posterior tuberosity of the right calcaneus with small am ount of lucency along the more anterior/plantar aspect of the fracture line and with new linear scler osis along the more proximal/posterior aspect of the fracture plane consistent with some interval hea ling. Alignment throughout the right foot and ankle remains normal. No other fractures identified. Mi ld osteoarthritis at the first metatarsophalangeal and a few tarsometatarsal and interphalangeal join ts. Soft tissues are unremarkable with no ankle joint effusion. IMPRESSION: 1. Healing nondisplaced fracture underlying the posterior tuberosity of the calcaneus. Reviewed, dictated and finalized at location A. T FARMER IMPRESSION: 1. Healing nondisplaced fracture underlying the posterior tuberosity of the suyapa caneus.
== END 2024-07-02 12:05 | disposition home or self-care (01) ==
PROVIDERS: PCP Physician Assistant Surgical; Visit Provider Physician Assistant Surgical
DX: S92.044D Nondisplaced other fracture of tuberosity of right calcaneus, subsequent encounter for fracture with routine healing (principal); S90.31XD Contusion of right foot, subsequent encounter; W10.9XXD Fall (on) (from) unspecified stairs and steps, subsequent encounter
CPT/HCPCS: 73700

== ENCOUNTER 2025-06-18 11:03 | Outpatient (CLI) | payer OTHER, SELFPAY ==
--- NOTE | ~2025-06-18 | CT_ITS ---
EXAMINATION: CT lung screening DATE: 06/18/2025 11:28 INDICATION: Z87.891 - Personal history of nicotine dependence TECHNIQUE: Computed tomography (CT) of the chest was performed without intravenous contrast. Additional 3D reconstructions utilizing coronal maximum intensity projection (MIP) were performed. Automated exposure control and iterative reconstruction technique were employed. The dose-length product was 59 .71 mGy-cm. COMPARISON: 05/27/2024 FINDINGS: Mild emphysema. A couple calcified right upper lobe nodules along with calcified right hilar and mediastinal lymph nodes and a few splenic calcifications, all consistent with old granulomatous disease. No interval change in a 4 mm left lower lobe pulmonary nodule. There is a new 4-5 mm noncalcified nodule at the azygoesophageal recess of the right lower lobe on image 82. Mild discoid atelectasis in bilateral lower lobes. No pneumonia, pulmonary edema or pleural effusion. Heart size is normal. No pericardial effusion. Thoracic aorta is normal in caliber. No pathologically enlarged thoracic lymphadenopathy. Bilateral breast implants. Mild thoracic spondylosis. Chronic mild anterior wedging at T5. IMPRESSION: 1. Lung-RADS category 3: Probably benign. Further evaluation is recommended with noncontrast low-dose chest CT in 6 months. Reviewed, dictated and finalized at location A. GRAPHY TECHNOLOGIST IMPRESSION: 1. Lung-RADS category 3: Probably benign. Further evaluation is recommended wit h noncontrast low-dose chest CT in 6 months.
--- OUTSIDE RECORDS SUMMARY | 2025-06-18 16:14 | XMS_ITS | Data Portability ---
Author Organization [facility] [place] Address [address] [place] [address] [place] [address] Assessment Encounter Date Assessment Date Assessment LastModified by Organization Details LastModified Time 03/21/2022 03/21/2022 Annual gynecological exam performed. Patient will come back in a year unless there are new symptoms. Not available 03/21/2022 12:27:38 06/19/2023 06/19/2023 Annual gynecological exam performed. Patient will come back in a year unless there are new symptoms. Not available 06/19/2023 14:30:48 09/09/2024 09/09/2024 Annual gynecological exam performed. Patient will come back in a year unless there are new symptoms. [email or web address] Not available 09/06/2024 10:24:25 Plan of Treatment Reminders Order Date Submit Date Provider Last Modified By Organization Details Last Modified Time Details Appointments None recorded. Lab None recorded. Referral None recorded. Procedures None recorded. Surgeries None recorded. Imaging MAMMO, screening, digital, bilateral 2024 025 [facility], [address], [place], [address], 5 05:01:35 US, pelvis 2022 023 [email or web address] [place], [facility] [address], [place], [address], 3 15:26:14 US, transvagina l 2022 023 [email or web address] [address], [address], [place], [address], 3 15:26:14 US, pelvis, complete 2022 023 [address], [place], [address], 3 15:23:20 Medication Orders estradiol 0.01% (0.1 mg/gram) vaginal cream 2024 025 [id number], [address], [place], [id number], 5 15:54:24 Macrobid 100 mg capsule 2024 025 [facility] #[id number], [address], [place], [id number], 5 10:25:30 terconazole 0.8 % vaginal cream 2024 025 [facility][id number], [address], [place], [id number], 5 10:25:28 estradiol-n orethindron e acet 0.5 mg-0.1 mg tablet 2022 023 [facility] #[id number], [address], [place], [id number], 5 15:22:50 Patient TargetsNo targets recorded. Patient InstructionsNo instructions recorded. Reason for Referral None Reported. Results Created Date Observation Date Name Description Value Unit Range Abnormal Flag Note LastModifiedBy Organization Detail LastModifiedTime 03/21/20 22 03/21/2022 IMAGE GUIDE D PAP AND HPV REGAR DLESS image guided Pap, HPV regardless of Pap result SEE RESULT S BELOW CASE REPOR T: Cytol ogy Gynec ologi evans Repor t Case: [id number] Autho jefframa magda Provi serene: Mira london , Elijah Paz cted: 03/21 1551 CONTRACTS ADMINISTRATOR Order ing Locat ion: [place] Patho logkrystian Recei lexi: 03/22 0225 First Scree n: Eddie ma, Zara Rescr een: Raf billings, Keira biggs, CT Speci men: Dawit miner Pap - Image d, Cervi x STATE MENT OF ADEQU ACY: Satis facto ry for evalu ation Trans forma tion zone compo nent prese nt FINAL DIAGN OSIS: Negat emery for Intra epith elial Luis Miguel n or Jatinder ford (NIL) . Elect julianojojo dhillon brian d by Raf billings, Keira biggs, CT on 2021 at 9:28 PM ----- ----- ----- ----- ----- ----- ----- ----- ----- ----- ----- ----- ----- ----- ----- ----- ----- ---- HPV RESUL TS: HPV mRNA E6/E7 : No HPV mRNA Detec michele NOTE: This high risk HPV mRNA assay detec ts fourt een high- risk HPV types (16, 18, 31, 33, 35, 39, 45, 51, 52, 56, 58, 59, 66, 68) witho ut diffe renti ation . COMME NT: Note: This speci men was revie wed by a Cytot echno logis t and/o r Patho logis t (as indic ated in this repor t) after evalu ation using the Thinp rep Imagi ng Syste m. CLINI EVANS INFOR MATIO N: Menst rual Statu s: LMP (if appli cable ): Clini evans Histo ry/Pr eviou s Pap: Type of Neopl chris (if appli cable ): Signi fican t Clini evans Findi ngs: Other Histo ry: Hormo car (if appli cable ): PAP EDUCA LATOSHA L NOTE: The Pap Test is a scree isidra test with an inher ent false negat emery rate. Liqui d-bas ed sampl ing may decre ase, but will not elimi horacio, false negat emery resul ts. A negat emery resul t does not precl ude the prese nce and/o r devel opmen t of disea se, since the prese nce of abnor mal cells in the sampl e depen ds on the locat ion of the lesio n and sampl ing techn ique. Hari nued regul ar scree isidra is the best metho d of cance r preve ntion . If repor michele cytol ogic findi ng do not corre late with physi evans and/o r histo rical findi ngs, furth er inves tigat ion is recom ana d, as clini summer warra nted. Not Available [facility] [address] [place], [address], 03/25/2022 22:30:38 06/19/20 23 06/19/2023 URINA LYSIS , WITH MICRO SCOPI C, REFLE X CULTU RE color, urine Light Yellow Not Available [facility] (Lab) [address] [place], [address], 06/20/2023 05:25:32 06/19/20 23 06/19/2023 URINA LYSIS , WITH MICRO SCOPI C, REFLE X CULTU RE clarity, urine Clear Not Available [facility] (Lab) [address] [place], [address], 06/20/2023 05:25:32 06/19/20 23 06/19/2023 URINA LYSIS , WITH MICRO SCOPI C, REFLE X CULTU RE specific gravity, urine 1.008 . 1.005- 1.035 Not Available [facility] (Lab) [address] [place], [address], 06/20/2023 05:25:32 06/19/20 23 06/19/2023 URINA LYSIS , WITH MICRO SCOPI C, REFLE X CULTU RE pH, urine 6.0 . 5.0-7. 0 Not Available [facility] (Lab) [address] [facility], [place], [address], 06/20/2023 05:25:32 06/19/20 23 06/19/2023 URINA LYSIS , WITH MICRO SCOPI C, REFLE X CULTU RE protein, UA Negati ve mg/dL negati ve, - Not Available [facility] (Lab) [address] [facility], [place], [address], 06/20/2023 05:25:32 06/19/20 23 06/19/2023 URINA LYSIS , WITH MICRO SCOPI C, REFLE X CULTU RE glucose, urine Normal mg/dL negati ve Not Available [facility] (Lab) [address] [facility], [place], [address], 06/20/2023 05:25:32 06/19/20 23 06/19/2023 URINA LYSIS , WITH MICRO SCOPI C, REFLE X CULTU RE ketones, urine Negati ve mg/dL negati ve Not Available [facility] (Lab) [address] [facility], [place], [address], 06/20/2023 05:25:32 06/19/20 23 06/19/2023 URINA LYSIS , WITH MICRO SCOPI C, REFLE X CULTU RE bilirubin, urine Negati ve negati ve Not Available [facility] (Lab) [address] [facility], [place], [address], 06/20/2023 05:25:32 06/19/20 23 06/19/2023 URINA LYSIS , WITH MICRO SCOPI C, REFLE X CULTU RE blood, urine Negati ve negati ve Not Available [facility] (Lab) [address] [facility], [place], [address], 06/20/2023 05:25:32 06/19/20 23 06/19/2023 URINA LYSIS , WITH MICRO SCOPI C, REFLE X CULTU RE nitrite, urine Negati ve negati ve Not Available [facility] (Lab) [address] [facility], [place], [address], 06/20/2023 05:25:32 06/19/20 23 06/19/2023 URINA LYSIS , WITH MICRO SCOPI C, REFLE X CULTU RE leukocyte esterase, urine Negati ve nabeel/u L negati ve Not Available [facility] (Lab) [address] [facility], [place], [address], 06/20/2023 05:25:32 06/19/20 23 06/19/2023 URINA LYSIS , WITH MICRO SCOPI C, REFLE X CULTU RE urobilinogen , urine Normal mg/dL normal , <2.0 Not Available [facility] (Lab) [address] [facility], [place], [address], 06/20/2023 05:25:32 06/19/20 23 06/19/2023 URINA LYSIS , WITH MICRO SCOPI C, REFLE X CULTU RE RBC, urine 0-2 /hpf none, 0-2 Not Available [facility] (Lab) [address] [facility], [place], [address], 06/20/2023 05:25:32 06/19/20 23 06/19/2023 URINA LYSIS , WITH MICRO SCOPI C, REFLE X CULTU RE WBC, urine 0-5 /hpf none, 0-5 Not Available [facility] (Lab) [address] [facility], [place], [address], 06/20/2023 05:25:32 06/19/20 23 06/19/2023 URINA LYSIS , WITH MICRO SCOPI C, REFLE X CULTU RE squamous epithelial cells, urine Few /hpf none abnormal Not Available [facility] (Lab) [address] [facility], [place], [address], 06/20/2023 05:25:32 06/19/20 23 06/19/2023 URINA LYSIS , WITH MICRO SCOPI C, REFLE X CULTU RE bacteria, urine None /hpf none Not Available [facility] (Lab) [address] [facility], [place], [address], 06/20/2023 05:25:32 06/19/20 23 06/19/2023 URINA LYSIS , WITH MICRO SCOPI C, REFLE X CULTU RE hyaline cast, urine None /lpf none, 0-2 Urine Cultu re not perfo rmed per refle x amber col. Not Available [facility] (Lab) [address] [facility], [place], [address], 06/20/2023 05:25:32 06/19/20 23 06/19/2023 IMAGE GUIDE D PAP AND HPV REGAR DLESS image guided Pap, HPV regardless of Pap result SEE RESULT S BELOW CASE REPOR T: Cytol ogy Gynec ologi evans Repor t Case: [id number] Autho jeferson man Provi serene: Adelso Ly Colle cted: 06/19 1521 CONTRACTS ADMINISTRATOR Order ing Locat ion: [place] Patho logy Recei lexi: 06/20 1024 First Scree n: Hannah Mckeon CT Speci men: Dawit miner Pap - Image d, Cervi x STATE MENT OF ADEQU ACY: Satis facto ry for evalu ation Trans forma tion zone compo nent prese nt FINAL DIAGN OSIS: Negat emery for Intra epith elial Luis Miguel [place] or Jatinder ford (NIL) . Saba torres d by Hannah Mckeon CT on 06/24 at 7:06 PM ----- ----- ----- ----- ----- ----- ----- ----- ----- ----- ----- ----- ----- ----- ----- ----- ----- ---- HPV RESUL TS: HPV mRNA E6/E7 : No HPV mRNA Detec michele NOTE: This high risk HPV mRNA assay detec ts fourt een high- risk HPV types (16, 18, 31, 33, 35, 39, 45, 51, 52, 56, 58, 59, 66, 68) witho ut diffe renti ation . COMME NT: This speci men was revie wed by a Cytot echno logis t and/o r Patho logis t (as indic ated in this repor t) after evalu ation using the Thinp rep Imagi ng Syste m. CLINI EVANS INFOR MATIO N: Menst rual Statu s: LMP (if appli cable ): Clini evans Histo ry/Pr eviou s Pap: Type of Neopl chris (if appli cable ): Signi fican t Clini evans Findi ngs: Other Histo ry: Hormo car (if appli cable ): PAP EDUCA LATOSHA L NOTE: The Pap Test is a scree isidra test with an inher ent false negat emery rate. Liqui d-bas ed sampl ing may decre ase, but will not elimi horacio, false negat emery resul ts. A negat emery resul t does not precl ude the prese nce and/o r devel opmen t of disea se, since the prese nce of abnor mal cells in the sampl e depen ds on the locat ion of the lesio n and sampl ing techn ique. Hari nued regul ar scree isidra is the best metho d of cance r preve ntion . If repor michele cytol ogic findi ng do not corre late with physi evans and/o r histo rical findi ngs, furth er inves tigat ion is recom ana d, as clini summer warra nted. Not Available [facility] (Lab) [address], [place], [address], 06/24/2023 20:09:36 06/19/20 23 06/19/2023 TRICH OMONA S VAGIN ABRAHAM (RRNA ) trichomonas vaginalis ribosomal RNA (rrna) Negati ve negati ve Not Available [facility] (Lab) [address], [place], [address], 06/24/2023 20:09:36 06/19/20 23 06/19/2023 CT/GC (CELIO) , THINP REP VIAL chlamydia trachomatis, PCR Negati ve negati ve Not Available [facility] (Lab) [address] [facility], [place], [address], 06/24/2023 20:09:36 06/19/20 23 06/19/2023 CT/GC (CELIO) , THINP REP VIAL neisseria gonorrhoeae, PCR Negati ve negati ve Not Available [facility] (Lab) [address] [facility], [place], [address], 06/24/2023 20:09:36 06/19/20 23 06/19/2023 urina lysis , dipst ick Leukocytes trace Not Available [facility] [address], [place], [address], 06/19/2023 15:52:28 06/19/20 23 06/19/2023 urina lysis , dipst ick pH 5 Not Available [place] [address], [place], [address], 06/19/2023 15:52:28 06/19/20 23 06/19/2023 urina lysis , dipst ick Blood trace Not Available [place] [address], [place], [address], 06/19/2023 15:52:28 06/19/20 23 06/19/2023 urina lysis , dipst ick Specific Stafford 1.005 Not Available [facility] [address], [place], [address], 06/19/2023 15:52:28 08/20/19 25 08/20/2024 CULTU RE: URINE result report SEE RESULT S BELOW Test: Cultu re: Urine Speci men Sourc e: Urine - Clean Catch Speci men Type: Urine Speci men Date: 2024 1615 Resul t Date: 2024 Resul t Statu s: Final resul t Abnor mal: No Resul analisag Lab: [facility] [address] [facility] [address] Tel: CULTU RE ----- ----- ----- --- No growt h in 1 day (dete ction level of 10,00 0 colon ies / ml.) Not Available [facility] (Lab) [address], [place], [address], 08/21/2024 22:42:56 08/20/19 25 08/20/2024 urina lysis , dipst ick Leukocytes pos Not Available [facility] [address], [place], [address], 08/20/2024 17:01:17 08/20/19 25 08/20/2024 urina lysis , dipst ick Nitrite neg Not Available [place] [address], [place], [address], 08/20/2024 17:01:17 08/20/19 25 08/20/2024 urina lysis , dipst ick Urobilinogen neg Not Available [facility] terese [address], [place], [address], 08/20/2024 17:01:17 08/20/19 25 08/20/2024 urina lysis , dipst ick pH 5 Not Available [place] [address], [place], [address], 08/20/2024 17:01:17 08/20/19 25 08/20/2024 urina lysis , dipst ick Blood trace Not Available [place] [address], [place], [address], 08/20/2024 17:01:17 08/20/19 25 08/20/2024 urina lysis , dipst ick Specific Stafford 1.025 Not Available [facility] servando [address], [place], [address], 08/20/2024 17:01:17 08/20/19 25 08/20/2024 urina lysis , dipst ick Ketone neg Not Available [place] [address], [place], [address], 08/20/2024 17:01:17 08/20/19 25 08/20/2024 urina lysis , dipst ick Bilirubin neg Not Available [facility] [address], [place], [address], 08/20/2024 17:01:17 08/20/19 25 08/20/2024 urina lysis , dipst ick Glucose neg Not Available [place] [address], [place], [address], 08/20/2024 17:01:17 08/20/19 25 08/20/2024 urina lysis , dipst ick Appearance cloudy Not Available [facility] [address], [place], [address], 08/20/2024 17:01:17 08/20/19 25 08/20/2024 urina lysis , dipst ick Color dark yellow Not Available [place] [address], [place], [address], 08/20/2024 17:01:17 06/21/20 23 06/21/2023 US, pelvi s No observ ation record ed. [facility] [address], [place], [address], 06/21/2023 18:19:48 06/21/20 23 06/21/2023 US, trans vagin al No observ ation record ed. [facility] [address], [place], [address], 06/21/2023 18:19:58 06/21/20 23 06/21/2023 US, pelvi s No observ ation record ed. [facility] Lara [address], [place], [address], 07/08/2023 09:15:12 08/10/19 24 08/10/2023 MAMMO , scree isidra, bilat eral No observ ation record ed. jeny [facility] [address], [place], [address], 09/28/2023 15:46:04 01/01/20 24 10/24/2023 US, doppl er echoc ardio gram No observ ation record ed. Not Available 12/31 13:07:39 Result Notes None recorded. Problems Name Problem SNOMED Code Status Onset Date Resolution Date Notes Provider Name and Address Organization Details Recorded Time Screenin g for malignan t neoplasm of cervix Completed 201003/21/2022 Pap Smear;Pra ctice ID: [id number] Echo Connell [facility] 2 09:53:33 Speciali zed medical examinat ion Completed 201003/21/2022 Gynecolog ical Examinati on;Record ed Elsewhere : No Locati on: [facility] So urce: EHR Chron ic: N Practic e ID: 0001 Bill able Time: 03:00:00 PM Echo jesus [facility] 2 09:53:[address] Concept Completed 201503/21/2022 Encntr for general adult medical exam w/o abnormal findings; Practice ID: [id number] Echo jesus [facility] 2 09:53:[address] Concept Completed 201503/21/2022 Encntr for digital tech exam (general) (routine) w/o abn findings; Practice ID: [id number] Echo jesus [facility] 2 09:53:33 Screenin g for malignan t neoplasm of rectum Completed 201503/21/2022 Encounter for screening for malignant neoplasm of rectum;Pr actice ID: [id number] Echo jesus [facility] 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 2 09:53:33 Atrophic vaginiti s [id number] Completed 201703/21/2022 Postmenop ausal atrophic vaginitis ;Recorded Elsewhere : No Locati on: [facility] So urce: EHR Chron ic: N Practic e ID: [id number] Bill able Time: 02:30:00 PM Echo jesus [facility] 2 09:53:33 Menopaus e present [id number] Completed 201803/21/2022 Menopausa l and female climacter ic states;Pr actice ID: [id number] Echo Connell [facility] 2 09:53:33 Problem Notes None recorded. Procedures Surgical History Date Name Laterality Status Provider Name and Address Organization Details Recorded Time 4 Date of Last Mammogram completed [facility] 09/06/2024 10:26:35 3 Date of Last Pap Smear completed [facility] 09/06/2024 10:25:51 2 Date of Last Colonoscopy completed Bonita Nunn [facility] 06/19/2023 14:34:[address] [facility] 10/21/2020 15:41:[address] [facility] 10/22/2020 10:21:43 Imaging Results None recorded. Procedure Notes None recorded. Medical Equipment None Reported. Allergies Allergen ID Allergen Name Allergen Category Reaction Reaction Severity Criticality Documentation Date Start Date Code Code System Note Provider Name and Address Organization Details Recorded Time 97650 Product containin g penicilli n (product) medicatio n rash Not available Not available 07/17/2020 22940 8001 SNOMED React ion: rash; Comme nt: [facility]; Not Available [facility] 0 14:24:31 Medications Name Sig Start Date Stop Date Status Note LastModified by Organization Details LastModified Time medroxypr ogesteron e 10 mg tablet 10/22 completed Not Available Not Available Not Available lamotrigi ne 150 mg tablet take 1 tablet by oral route 2 times every day 10/22 completed Prescrib ed Elsewher e: Yes [facility] By: asad Urena ncountangie DateTime : 05/19/20 16 01:00:00 PM Not Available Not Available Not Available albuterol sulfate 2.5 mg/3 mL (0.083 %) solution for nebulizat ion NEBULIZE 1 VIAL EVERY 6 HOURS NEEDED FOR SHORTNES S OF BREATH 09/09 completed Not Available Not Available Not Available trazodone 50 mg tablet TAKE 1 TO 3 TABLETS BY MOUTH AT BEDTIME FOR SLEEP 08/20 completed Not Available Not Available Not Available alprazola m 1 mg tablet TAKE 2 TABLETS BY MOUTH THREE TIMES DAILY active Not Available Not Available No t Available ofloxacin 0.3 % eye drops 08/20 completed Not Available Not Available Not Available hydrocodo ne 5 mg-acetam inophen 325 mg tablet TAKE 1 TABLET BY MOUTH EVERY 6 HOURS NEEDED active Not Available Not Available No t Available Paxil 20 mg tablet take 1 tablet by oral route every day 04/24 completed Prescrib ed Elsewher e: No Locat ion: Gaby urena [facility] odify By: [email or web address] Encount er DateTime : 01/18/20 19 02:30:00 PM Not Available Not Available Not Available medroxypr ogesteron e 5 mg tablet Take 1 tablet every day by oral route. 10/22 completed Not Available Not Available Not Available quetiapin e 200 mg tablet TAKE 3 TABLETS BY MOUTH EVERY NIGHT AT BEDTIME active Not Available Not Available No t Available terconazo le 0.8 % vaginal cream INSERT 1 APPLICAT ORFUL VAGINALL Y EVERY DAY AT BEDTIME FOR 3 DAYS 09/06 completed Not Available Not Available Not Available Seroquel 25 mg tablet take 1 tablet by oral route 2 times every day 05/19 completed Prescrib ed Elsewher e: Yes [facility] By: asad sanders DateTime : 04/08/20 11 03:00:00 PM Not Available Not Available Not Available clobetaso l 0.05 % topical cream APPLY TOPICALL Y TO THE AFFECTED AREA TWICE DAILY FOR 1 WEEK 09/09 completed Not Available Not Available Not Available sulfameth oxazole 800 mg-trimet hoprim 160 mg tablet TAKE 1 TABLET BY MOUTH TWICE DAILY 08/20 completed Not Available Not Available Not Available ketorolac 0.5 % eye drops 08/20 completed Not Available Not Available Not Available oxycodone -acetamin ophen 5 mg-325 mg tablet TAKE 1-2 TABLETS BY MOUTH EVERY 4-6 HOURS NEEDED FOR PAIN 08/20 completed Not Available Not Available Not Available prednisol one acetate 1 % eye drops,ruben pension 08/20 completed Not Available Not Available Not Available polymyxin B sulfate 10,000 unit-trim ethoprim 1 mg/mL eye drops INSTILL 1 DROP IN LEFT EYE FOUR TIMES DAILY FOR 1 WEEK 09/06 completed Not Available Not Available Not Available fluoxetin e 10 mg capsule TAKE 1 CAPSULE BY MOUTH EVERY DAY 09/09 completed Not Available Not Available Not Available black cohosh root extract 40 mg capsule 05/19 completed Prescrib ed Elsewher e: Yes Loca tion: Gaby urena [facility] odify By: asad sanders DateTime : 04/08/20 11 03:00:00 PM Not Available Not Available Not Available estradiol 2 mg tablet TAKE 1 TABLET BY ORAL ROUTE EVERY DAY 02/18 completed Prescrib ed Elsewher e: No Locat ion: Cathytheronchuy urena [facility] odify By: david mohan DateTime : 10/17/19 03:04:37 PM Not Available Not Available Not Available hydroxyzi ne HCl 25 mg tablet TAKE 1 TABLET BY MOUTH THREE TIMES DAILY active Not Available Not Available No t Available gabapenti n 100 mg capsule TAKE 2 CAPSULES BY MOUTH THREE TIMES DAILY active Not Available Not Available No t Available estradiol 0.01% (0.1 mg/gram) vaginal cream INSERT 1 GRAM VAGINALL Y EVERY NIGHT FOR 2 WEEKS THEN USE VAGINALL Y 2 TIMES A WEEK active Not Available Not Available No t Available mirtazapi ne 15 mg disintegr ating tablet place 1 tablet by translin gual route every day on top of the tongue where it will dissolve , then swallow in the evening prior to sleep 10/22 completed Prescrib ed Elsewher e: Yes Loca tion: Cathytheronchuy urena [facility] odify By: asad sanders DateTime : 05/19/20 16 01:00:00 PM Not Available Not Available Not Available albuterol sulfate HFA 90 mcg/actua tion aerosol inhaler INHALE 1 TO 2 PUFFS BY MOUTH EVERY 4 TO 6 HOURS NEEDED FOR SHORTNES S OF BREATH OR WHEEZING active Not Available Not Available No t Available SSD 1 % topical cream 08/20 completed Not Available Not Available Not Available fluoxetin e 20 mg capsule TAKE 1 CAPSULE BY MOUTH DAILY active Not Available Not Available No t Available Lexapro 10 mg tablet take 1 tablet (10MG) by oral route every day 05/19 completed Prescrib ed Elsewher e: No Locat ion: Cathytheronchuy urena [facility] odify By: asad sanders DateTime : 04/08/20 11 03:00:00 PM Not Available Not Available Not Available alprazola m ER 1 mg tablet,ex tended release 24 hr take 1 tablet by oral route every day 09/06 completed Prescrib ed Elsewher e: Yes Loca tion: Gaby ayanna [facility] odify By: asad sanders DateTime : 05/19/20 16 01:00:00 PM Not Available Not Available Not Available nitrofura ntoin monohydra te/macroc rystals 100 mg capsule TAKE 1 CAPSULE BY MOUTH EVERY 12 HOURS FOR 7 DAYS 09/06 completed Not Available Not Available Not Available eszopiclo ne 2 mg tablet TAKE 1 TABLET BY MOUTH EVERY NIGHT AT BEDTIME active Not Available Not Available No t Available EEMT HS 0.625 mg-1.25 mg tablet Take 1 tablet every day by oral route as directed . 10/22 completed Not Available Not Available Not Available Seroquel active Not Available Not Avai lable Not Available Abilify 06/19 completed Not Available Not Available Not Available hydrocodo ne 7.5 mg-acetam inophen 300 mg tablet take 1 tablet by oral route every 6 hours as needed 09/06 completed Prescrib ed Elsewher e: Yes Loca tion: [facility] odify By: asad ascencioer DateTime : 05/19/20 16 01:00:00 PM Not Available Not Available Not Available estradiol -norethin drone acet 0.5 mg-0.1 mg tablet TAKE 1 TABLET BY MOUTH ONCE DAILY 09/09 completed Not Available Not Available Not Available Lithate 5 mg capsule 05/19 completed Prescrib ed Elsewher e: Yes Loca tion: [facility] odify By: asad dela cruzunter DateTime : 04/08/20 11 03:00:00 PM Not Available Not Available Not Available lithium aspartate 03/21 completed Not Available Not Available Not Available Spiriva Respimat 2.5 mcg/actua tion solution for inhalatio n INHALE 2 PUFFS BY MOUTH DAILY 09/09 completed Not Available Not Available Not Available baclofen 5 mg tablet TAKE 1 TABLET BY MOUTH TWICE DAILY active Not Available Not Available No t Available Breztri Aerospher e 160 mcg-9mcg- 4.8mcg/ac tuation HFA aerosol inhaler active Not Available Not Available Not Available BinaxNOW COVID-19 Ag Self Test kit TEST DIRECTED TODAY 09/06 completed Not Available Not Available Not Available Vitals Date Recorded Body height Body mass index (BMI) Body weight Systolic And Diastolic Provider Name and Address Organization Details Last Updated DateTime 08/20/2024 160.02 cm 25.2 kg/m2 70669.12 g 114/76 mm[Hg] JJ Ponce [facility] 08/20/2024 16:35:56 Date Recorded Body height Body mass index (BMI) Body weight Systolic And Diastolic Provider Name and Address Organization Details Last Updated DateTime 09/09/2024 160.02 cm 25.2 kg/m2 18614.84 g 116/74 mm[Hg] Virgen Stevenson [facility] 09/09/2024 15:22:39 Date Recorded Body height Body weight Body mass index (BMI) Systolic And Diastolic Provider Name and Address Organization Details Last Updated DateTime 03/21/2022 160.02 cm 21150.35 g 19.8 kg/m2 126/80 mm[Hg] Echokrystian Connell [facility] 03/21/2022 12:30:04 Date Recorded Body height Body mass index (BMI) Body weight Systolic And Diastolic Provider Name and Address Organization Details Last Updated DateTime 06/19/2023 160.02 cm 23.6 kg/m2 49705.79 g 103/69 mm[Hg] Bonita Nunn [facility] 06/19/2023 14:33:17 Social History Question Answer Notes LastModified by Organizat ion Details LastModified Time Tobacco Smoking Status Former Smoker Echo Connell ann marie, [facility] 03/21/2022 12:30:29 Are You Blind Or Do You Have Difficulty Seeing? No Information n ot available 03/21/2022 What Is Your Level Of Caffeine Consumption? Moderate [email or web address] Information not available 08/20/2024 How Much Tobacco Do You Chew? None [email or web address] Information not available 08/20/2024 In The 14 Days Before Symptom Onset, Have You Had Close Contact With A Laboratory-confirm ed COVID-19 While That Case Was Ill? No Information n ot available 06/19/2023 In The 14 Days Before Symptom Onset, Have You Had Close Contact With A Person Who Is Under Investigation For COVID-19 While That Person Was Ill? No Information not available 06/19/2023 Have You Been To An Area Known To Be High Risk For COVID-19? No Information not available 06/19/2023 Are You Deaf Or Do You Have Serious Difficulty Hearing? No Information not available 03/21/2022 What Type Of Diet Are You Following? REGULAR Information n ot available 03/21/2022 What Is The Highest Grade Or Level Of School You Have Completed Or The Highest Degree You Have Received? [id number] [email or web address] Information not available 08/20/2024 Are There Any Guns Present In Your Home? No Information not available 08/20/2024 Do You Use Protection During Sex? No [email or web address] Information not available 08/20/2024 Do You Use Your Seat Belt Or Car Seat Routinely? Yes Information not available 03/21/2022 Do You Have Smoke And Carbon Monoxide Detectors In Your Home? Yes Information not available 03/21/2022 At What Age Did You Start Smoking Tobacco? 17 Information not available 08/20/2024 How Much Tobacco Do You Smoke? 1 PPD [email or web address] Information not available 08/20/2024 Do You Use Sunscreen Routinely? Yes Information not available 03/21/2022 How Many Years Have You Smoked Tobacco? 40 [email or web address] Information not available 08/20/2024 Have You Used IV Drugs? No [email or web address] Information not available 08/20/2024 Do You Have Difficulty Walking Or Climbing Stairs? No Information not available 03/21/2022 Sex: Unknown Functional Status Question Answer Note LastModified by Organizat ion Details LastModified Time Do you use any illicit or recreational drugs? No Information not available 03/21/2022 What is your level of alcohol consumption? None Information not available 08/20/2024 Are you able to walk independently without assistance or assistive devices? [email or web address] Information not available 03/21/2022 Are you able to care for yourself independently? 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 No Information not available 03/21/2022 What is your exercise level? Moderate [email or web address] Information not available 08/20/2024 Mental Status Question Answer Note LastModified by Organization D etails LastModified Time Do you feel stressed (tense, restless, nervous, or anxious, or unable to sleep at night)? [id number] Information not available 03/21/2022 Family History Relationship Description Onset Age of this Age Resolved Age Notes LastModified by Organization Details LastModified Time Paternal Grandmother Carcinoma in situ of colon [email or web address] Not available 2022 15:30:40 Sister Asthma [email or web address] Not available 15:41:17 Sister Acute stroke [email or web address] Not avail able 06/21/2023 15:30:40 Medical History Condition Response Allergies (Food, seasonal, environmental ) N Other N Breast Cancer N Drug/Latex Allergies/Reactions N Blood Transfusion N Dermatologic Disorders N Lung Disease Y Defects or Inherited Disease N Breast Problem N Gestational Diabetes N Hematologic disorders N Anesthesia Complications N History of STI N Deep Vein Thrombosis N Polycystic ovary syndrome N Anxiety Disorder N Autoimmune disease N Arthritis N Infertility N Polyps N Acid Reflux (GERD) N History of abnormal pap N Cancer N Stroke N Varicosities N Neurologic/Epilepsy Y Endometriosis N High Cholesterol N Headaches N Fibromyalgia N Kidney Disease N Heart Problems N Kidney or Bladder Problems N Thyroid Problems N GI Problems N Eating Disorder N Anemia N Art (IVF or FET) N Psychiatric Illness N Ovarian Cancer N Diabetes N Pulmonary (TB, Asthma) N Hepatitis/Liver Disease N No Past Medical History N Eczema N Urinary Tract Infection N Abuse/Domestic Violence N Asthma N Trauma/Violence N Depression/ depression N Heart Disease N Pre-Eclampsia N Hypertension N Osteoporosis N Thrombophilias N Gynecological History Statement/Question Response Date of Last Mammogram 08/10/2023 On BCP's at Conception? N N Was last menstrual period normal Y STIs/STDs N HPV Vaccine N Current Control Method Tubal Ligat ion Age at First Child 32 If Post Menopausal, Age at Menopause 46 Date of control 05/10/2002 Date of Last Colonoscopy 07/31/2021 Sexually Active? Y Menses Monthly N Age of first menstrual cycle 13 Date of Last Pap Smear 06/19/2023 Sexual Problems? Y Desired Control Method Unknown LMP Unknown Y 06/19/2023 Obstetrics History GPAL:G 3 P 2 0 1 0 Type Value Full Term 2 Spontaneous 1 Total 3 Past Encounters Encounter ID Performer Location Encounter Start Date Encounter Closed Date Diagnosis/Indication Diagnosis SNOMED-CT Code Diagnosis ICD10 Code Diagnosis IMO Codes Diagnosis Note [id number] Camille Lemos , [facility] [address] [address] 10/22/2020 10:09:37 10/22/2020 11:38:07 Gynecologic examination 86557982 Z01.419 Take Calcium with Vitamin D 12-1500mg daily. Do monthly self breast exams. It is advised to get annual flu shot in the fall and she could obtain at [facility] or [facility] care clinic. If you haven't received the Tdap vaccine in the last 10 years you should obtain one as well. Have mammogram yearly, bone density every 2-3 years and colonoscop y every 5-10 years depending on findings and history. Engage in daily exercise of low impact aerobic exercise 45-60 minutes 4-5 times weekly. Avoid tobacco and illicit drugs as well as using moderation with alcohol intake less than 1-2 8 oz beverages daily. This lifestyle behavior pattern will lead to less health conditions and longer life span. If BMI greater than 25 weight watchers or dietary consult advised. Questions have been answered. Patient appears to understand instructio ns, but if you have any further questions call or respond to this email monogamous relationsh ip Normal pap/hpv hx We agreed to do q3yr so will do pap/hpv next year unless otherwise indicated. UTD colonoscop y per PCP wnl 2020 Postmenopa usal osteoporosis 518170922 M81.0 Has a hx of osteoporos is Was on HRT for awhile then stopped b/c she was worried about risks for her b/c she smokes; and stopped osteoporos is meds b/c too many side effects GI system. We had a good conversati on about risks for osteoporos is which are great for her since she is thin, white female who is also a smoker. We agreed to pursue updated Dexa since it's been 5yrs since last one. Will decide what direction she would like to take once results return and even consider a consultati on with a bone specialist for alternativ e options. She voices understand ing and agreeable to this plan. [id number] Camille Lemos , [facility] [address] [place] [address] 03/21/2022 11:49:58 03/21/2022 13:04:39 Gynecologic examination 10392735 Z01.419 Take Calcium with Vitamin D 12-1500mg daily. Do monthly self breast exams. It is advised to get annual flu shot in the fall and she could obtain at [facility]. If you haven't received the Tdap vaccine in the last 10 years you should obtain one as well. Have mammogram yearly, bone density every 2-3 years and colonoscop y every 5-10 years depending on findings and history. Engage in daily exercise of low impact aerobic exercise 45-60 minutes 4-5 times weekly. Avoid tobacco and illicit drugs as well as using moderation with alcohol intake less than 1-2 8 oz beverages daily. This lifestyle behavior pattern will lead to less health conditions and longer life span. If BMI greater than 25 weight watchers or dietary consult advised. Questions have been answered. Patient appears to understand instructio ns, but if you have any further questions call or respond to this email Pap/hpv sent STD Screen declined Genetic Screen discussed Colon Screen UTD PCP Dexa Screen UTD PCP Routine Labs UTD PCPMammo ordered [id number] Camille Lemos , [facility] [address] [address] 06/19/2023 14:21:19 06/19/2023 15:23:20 Gynecologic examination 28146177 Z01.419 Z11.51 Take Calcium with Vitamin D 12-1500mg daily. Do monthly self breast exams. It is advised to get annual flu shot in the fall and she could obtain at [facility] or [facility]. If you haven't received the Tdap vaccine in the last 10 years you should obtain one as well. Have mammogram yearly, bone density every 2-3 years and colonoscop y every 5-10 years depending on findings and history. Engage in daily exercise of low impact aerobic exercise 45-60 minutes 4-5 times weekly. Avoid tobacco and illicit drugs as well as using moderation with alcohol intake less than 1-2 8 oz beverages daily. This lifestyle behavior pattern will lead to less health conditions and longer life span. If BMI greater than 25 weight watchers or dietary consult advised. Questions have been answered. Patient appears to understand instructio ns, but if you have any further questions call or respond to this email Pap/hpv sentSTD Screen sentGeneti c Screen discussedC olon Screen UTD PCPDexa Screen UTD PCPRoutine Labs UTD PCPMammo UTD PCP Pain in pelvis 26253688 R10.2 Hx of ICHaving pelvic pain x 1mosBloati ngStomach pressure.U rine cx sentUS scheduledF /U to discuss Patient is to contact office or go to nearest ED/Urgent care if fever >/= 100.1, pain, excessive bleeding, unusual drainage or swelling in area of concern; or experienci ng worsening sx's or new onset of concerning sx's. Understand ing verbalized . All questions answered to patient satisfacti on. Menopausal symptom 91123 002 N95.1 Counseled on the following: Females >10yrs past menopause (& age 60yo+) are generally not good candidates for starting (1st use) systemic HT. Decisions to continue systemic HT > a decade past menopause (or past age 60yo) requires balancing R/B's; & individual ized needs. Non-hormon al options may be more appropriat e for females >10yrs past menopause. Hx of former smoker E/P HRT sent.Will discuss d/c next year age 59yo 2023 WWE. [id number] Tucker Hook MD [place] [address],[place] [address] 06/21/2023 15:30:29 06/21/2023 16:26:42 Pain in pelvis 43934995 R10.2 [id number] CRUZ Hammond [facility] [address],[place] [address] 08/20/2024 16:26:53 08/22/2024 23:07:06 Urinary symptoms 577475307 R39.9 UA done, cx sentrx sent for UTI - r/b/a reviewedav oid bladder irritantsp recautions discussed, questions answeredrx sent for yeast, pt will often get yeast infections with antibiotic use Time spent in visit is a total of 18 mins with at least 50% of visit consisting of counseling and review of plan of care. Vaginitis 42458542 N76.0 [id number] Tucker Hook MD [facility] [address] [address] 09/09/2024 15:10:51 09/09/2024 15:58:21 Vaginal dryness 93679827 N89.8 Discussed estradiol 0.01% cream for vaginal dryness and dyspareuni a. Risks/bene fits/instr uctions for use reviewed.R TO in 8 weeks for med check. Counseled on the following: Vaginal Dryness: Bothersome symptoms of the vagina and vulva (outer lips of the vagina) increase during and after the menopause transition or may start several years after menopause. The decrease in estrogen with menopause is a major contributo r to vaginal dryness, itching, burning, discomfort , and pain during intercours e or other sexual activity. Vaginal atrophy is the medical term that describes these changes. The genitourin isis syndrome of menopause includes bothersome vaginal atrophy often combined with urinary symptoms. Vaginal atrophy may significan tly affect your quality of life, sexual satisfacti on, and relationsh ip with your partner. Unlike hot flashes, which generally improve with time, vaginal symptoms typically worsen with time because of aging and a prolonged lack of estrogen. Vaginal estrogen therapy An effective and safe treatment, low-dose local estrogen is applied directly to the vagina to restore vaginal health and relieve vaginal dryness and discomfort with sexual activity. Improvemen ts usually occur within a few weeks, although complete relief may take several months. This even may be an option for women with a history of breast or uterine cancer but only after careful considerat ion of risks and benefits with a healthcare provider and oncologist . Government -approved low-dose vaginal estrogen products are available by prescripti on as vaginal creams (used two or three nights/wee k), a vaginal estradiol tablet (used twice/week ), and an estradiol vaginal ring (changed every 3 months). All are highly effective. You may wish to try several different forms and choose the one you prefer. Standard doses of estrogen therapy provided to treat hot flashes also treat vaginal dryness, although some women still benefit from additional low-dose vaginal estrogen treatment. If only vaginal symptoms are present, low doses of estrogen applied to the vagina are recommende d. Resources: https://faustino luis.[employer].org/docs /default-s ource/for- women/mn-v aginal-dry ness.pdf Dyspareunia [id number] N94 .10 Gynecologi c examination 12519386 Z01.419 Annual gynecologi evans exam performed. Patient will come back in a year unless there are new symptoms. Suggest Calcium with Vitamin D if not eating in diet. Patient advised to get annual flu shot. Recommend yearly physicals and perform monthly breast exams. Genetic testing is available for patients with family history of cancer. Engage in safe sexual practices, use condoms. Encouraged to have daily exercise. Avoid tobacco and illicit drugs, moderation of alcohol. If BMI greater than 25 dietary consult advised. If you have any questions please call or email. mammogram- DUE; order given, pt to schedule colon cancer screening - UTD PCP DEXA scan- DUE; discussed that bone density is recommende d; pt declined at this time Pap smear- UTD (2022- ), will repeat in 2025 per ASCCP guidelines laboratory evaluation - declined STI testing - declined Screening mammography 24 325641 Z12.31 Health Concerns Section Related Observation LastModified by Organization Detai ls LastModified Time None Recorded Concern Status LastModified by Organization Details LastModified Time None Recorded Advance Directives Directive None Recorded Payers Insurance Date Sequence Insurance Name Policy Number Policy Napoles Covered Member ID Napoles Member ID Guarantor Name 09/06/2024 1 [employer] (POS II) [id number] Tavo Young [id number] Dhruv Young 10/22/2020 1 [employer] (POS) [id number] Tavo Young [id number] Dhruv Young Notes Date Note Type Note Provider Name and Address Organization Details Recorded Time 2 text/html Annual Mechanic Assistant Post-MenopausalReported by PatientGenitourinary symptomsFor menopausal symptoms, patient reportsno menopausal symptomsandnormal vaginal lubrication. For vaginal bleeding, patient reportshistory of menopause having occurredandno history of post menopausal bleeding. For urinary symptoms, patient reportsno hematuria,no incontinence,no nocturia, andno urinary frequency. For vulva, patient reportsno genital lesionandno vulvar atrophy. For vagina, patient reportsnormal vaginal dischargeandno vaginal atrophy.Breast symptomsFor breast, patient reportsno breast lump,no nipple discharge, andno breast pain.Psychological symptomsFor sexual complaints, patient reportsno sexual complaints. For psychological symptoms, patient reportsno depressionandno anxiety.Preventative measuresFor preventive measures, patient reportsencourage regular mammograms starting age 40,encourage self breast examination,encourage regular exercise,encourage no tobacco use,needs to schedule mammogram, andhistory of recent colonoscopy. Camille Lemos [facility] [address], [place], [address], [facility] 03/21/2022 12:44:13 3 text/html Annual Mechanic Assistant Post-MenopausalReported by PatientGenitourinary symptomsFor menopausal symptoms, patient reportsno menopausal symptomsandnormal vaginal lubrication. For vaginal bleeding, patient reportshistory of menopause having occurredandno history of post menopausal bleeding. For urinary symptoms, patient reportsno hematuria,no incontinence,no nocturia, andno urinary frequency. For vulva, patient reportsno genital lesionandno vulvar atrophy. For vagina, patient reportsnormal vaginal dischargeandno vaginal atrophy.Breast symptomsFor breast, patient reportsno breast lump,no nipple discharge, andno breast pain.Psychological symptomsFor sexual complaints, patient reportsno sexual complaints. For psychological symptoms, patient reportsno depressionandno anxiety.Preventative measuresFor preventive measures, patient reportsencourage regular mammograms starting age 40,encourage self breast examination,encourage regular exercise,encourage no tobacco use,mammogram performed within the past year, andhistory of recent colonoscopy. Camille Lemos [place] [address], [place], [address], [facility] 06/19/2023 15:20:54 5 text/html 59yopresents for dysuria and urinary frequency x 3 weeks neg flank painsneg n/v/fneg flu-like symptoms CRUZ Hammond [address], [place], [address], [facility] 08/22/2024 10:02:16 5 text/html Annual Mechanic Assistant Post-MenopausalReported by PatientGenitourinary symptomsFor menopausal symptoms, patient reportsinadequacy of lubrication of vaginal mucosabut reportsno menopausal symptoms. For vagina, patient reportsatrophic vaginabut reportsnormal vaginal discharge. For vaginal bleeding, patient reportshistory of menopause having occurredandno history of post menopausal bleeding. For urinary symptoms, patient reportsno hematuria,no incontinence,no nocturia, andno urinary frequency. For vulva, patient reportsno genital lesionandno vulvar atrophy.Breast symptomsFor breast, patient reportsno breast lump,no nipple discharge, andno breast pain.Psychological symptomsFor sexual complaints, patient reportsno sexual complaints. For psychological symptoms, patient reportsno depressionandno anxiety.Preventative measuresFor preventive measures, patient reportsencourage regular mammograms starting age 40,encourage self breast examination,encourage regular exercise, andencourage no tobacco use. Patient here for WWE.Patient c/o worsening vaginal dryness and pain during intercourse.Denies abnormal bleeding. DANAY TSE, [place] [address], [place], [address], [facility] 09/09/2024 15:56:31 OBGyn Episode Ob Episode Information Episode Created Date Number of Fetuses Patient Bloodtype Patient rh Status Prepregnancy Weight lbs Domestic Partner Domestic Partner Phone Father Name Phd Intern Status 10/22/19 21 1 CLOSED Fetus Data First Name Last Name Admitted to NICU Weight (g) Sex Living Outcome Pediatric Complications Fetus ID Race Codes Race Delivery Type , Spontane ous [id number] Gary Calculation Initial Gary Date Initial Exam Date Initial Exam Provider Initial Ultrasound Date Last Menstrual Period Date Ultra Sound Weeks Gestation 0 Eighteen To Twenty Week Gary Update Ultra Sound Date Fundal Height At Umbil Quickening Date Ultra Sound Latest Weeks Gestation Final Gary Confirmed By Final Gary Confirmed Date Final Gary Date Ultra Sound Latest Days Gestation 0 0 Menstrual History Last Menstrual Date Menses Monthly On Bcp Conception Prior Menses Frequency Hcg Plus Date Menarche Onset Age Delivery Information Delivery Date Delivery Type Labor Anesthesia Weeks Gestation Incision Type Labor Labor Length Hrs Delivered By Post Complications Tubal Sterilization Discharge Date Comments 1 Discharge Information Feeding Method Contraceptive Method Maternal HG B and HCT Levels Ob Episode Information Episode Created Date Number of Fetuses Patient Bloodtype Patient rh Status Prepregnancy Weight lbs Domestic Partner Domestic Partner Phone Father Name Phd Intern Status 10/22/19 21 1 CLOSED Fetus Data First Name Last Name Admitted to NICU Weight (g) Sex Living Outcome Pediatric Complications Fetus ID Race Codes Race Delivery Type F Full Term [id number] Vaginal Delivery Gary Calculation Initial Gary Date Initial Exam Date Initial Exam Provider Initial Ultrasound Date Last Menstrual Period Date Ultra Sound Weeks Gestation 0 Eighteen To Twenty Week Gary Update Ultra Sound Date Fundal Height At Umbil Quickening Date Ultra Sound Latest Weeks Gestation Final Gary Confirmed By Final Gary Confirmed Date Final Gary Date Ultra Sound Latest Days Gestation 0 0 Menstrual History Last Menstrual Date Menses Monthly On Bcp Conception Prior Menses Frequency Hcg Plus Date Menarche Onset Age Delivery Information Delivery Date Delivery Type Labor Anesthesia Weeks Gestation Incision Type Labor Labor Length Hrs Delivered By Post Complications Tubal Sterilization Discharge Date Comments 2 Discharge Information Feeding Method Contraceptive Method Maternal HG B and HCT Levels Ob Episode Information Episode Created Date Number of Fetuses Patient Bloodtype Patient rh Status Prepregnancy Weight lbs Domestic Partner Domestic Partner Phone Father Name Phd Intern Status 10/22/19 21 1 CLOSED Fetus Data First Name Last Name Admitted to NICU Weight (g) Sex Living Outcome Pediatric Complications Fetus ID Race Codes Race Delivery Type M Full Term [id number] Vaginal Delivery Gary Calculation Initial Gary Date Initial Exam Date Initial Exam Provider Initial Ultrasound Date Last Menstrual Period Date Ultra Sound Weeks Gestation 0 Eighteen To Twenty Week Gary Update Ultra Sound Date Fundal Height At Umbil Quickening Date Ultra Sound Latest Weeks Gestation Final Gary Confirmed By Final Gary Confirmed Date Final Gary Date Ultra Sound Latest Days Gestation 0 0 Menstrual History Last Menstrual Date Menses Monthly On Bcp Conception Prior Menses Frequency Hcg Plus Date Menarche Onset Age Delivery Information Delivery Date Delivery Type Labor Anesthesia Weeks Gestation Incision Type Labor Labor Length Hrs Delivered By Post Complications Tubal Sterilization Discharge Date Comments 9 Discharge Information Feeding Method Contraceptive Method Maternal HG B and HCT Levels
== END 2025-06-18 11:04 | disposition home or self-care (01) ==
PROVIDERS: Visit Provider Physician Assistant
DX: Z12.2 Encounter for screening for malignant neoplasm of respiratory organs (principal); Z87.891 Personal history of nicotine dependence
CPT/HCPCS: 71271